=== PATIENT | female | born 1950 | race Native Hawaiian/Other Pacific Islander ===

== ENCOUNTER 2025-04-03 08:26 | Inpatient (IN) | payer MEDICARE, BC, SELFPAY ==
[2025-04-03] VITALS (37 sets, daily range): BP systolic 122–162; BP diastolic 62–87; PULSE 75–102; RESP 8–33; TEMP 36.2–37.2; O2SAT 93–139; BMI 25.4; BMI 25.0
--- NOTE | 2025-04-03 | PATH_ITS ---
[facility] Accession Number: [id number] No. of containers..01 Tissue . 01 Material submitted: . jejunum - JEJUNUM, SEGMENTAL RESECTION . 01 Diagnosis: JEJUNUM, SEGMENTAL RESECTION: Segment of small bowel, with patchy erosion and focal ulceration. No dysplasia or malignancy identified. . Specimen Comments: The features are compatible with the clinical history of anastomotic ulceration. [facility] 04/07/20251640 Local . 01 Electronically signed: . Candelario Delgado MD, Pathologist NPI- [id number] . 01 Gross description: . Received in formalin, labeled with two identifiers and jejunum, is a small portion of bowel measuring 3.5 cm in length by 3.7 cm in diameter with visible mucosa and a blind-ended pouch. The margin is inked blue. The mucosa is pascual and velvety with edematous folds and focal erythema. The villeda measure up to 0.6 cm thick. No perforations are identified. Pressurizer sections are submitted in cassettes A1-A2. ([id number]) /Con[facility]ion 04/07/20251640 Local . 01 Pathologist provided ICD-10: K28.5 . 01 CPT . 049054 Specimen Comment: A courtesy copy of this report has been sent to [facility] Pathology Performed at: [address] [facility], [place], [place] [id number] MD Candelario Delgado MD Phone: [phone]
--- NOTE | 2025-04-03 08:52 | ED.ABDPAIN ---
HPI - Abdominal Pain General Chief Complaint: Abdominal Pain Stated Complaint: Coffee ground Vomit and stool . 5 days Time Seen by Provider: 04/03/25 08:35 Source: patient Mode of arrival: Ambulatory History of Present Illness HPI narrative: 74-year-old female history of hypertension dyslipidemia and known history of ulcers previously on pantoprazole that started back in September taken off of it most recently in January presents with coffee-ground emesis this past 1 day and starting on Sunday had dark diarrhea and was fine Sunday and and then this morning again started to have dark diarrheal stool. She is lightheaded weak with no energy at this time. She denies taking any NSAIDs and is not on any aspirin or any other anticoagulants. Other than what is stated 14 point review of system is negative. Related Data Allergies Allergy/AdvReac Type Severity Reaction Status Date / Time No Known Drug Allergies Allergy Verified 04/03/25 08:43 Review of Systems Review of Systems ROS Unobtainable: All systems reviewed & are unremarkable except as noted in HPI and below Patient History Social History Smoking Status: Never smoker Smoking Status: Never smoker Exam Narrative Exam Narrative: GENERAL: [74] year old patient appears stated age. Well-developed patient, in mild distress. HEAD: Atraumatic. Normocephalic. EYES: Pupils equal round and reactive. Extraocular motions intact. No scleral icterus. No injection or drainage. ENT: Nose without bleeding, purulent drainage. Throat without erythema, tonsillar hypertrophy or exudate. Airway patent. NECK: Trachea midline. Non tender CARDIOVASCULAR: Regular rate and rhythm without murmurs, gallops, or rubs. RESPIRATORY: Clear to auscultation. Breath sounds equal bilaterally. No wheezes, rales, or rhonchi. GASTROINTESTINAL: Abdomen soft, non-tender, LLQ ttp. EXTREMITIES: No edema or joint tenderness. BACK: Nontender without deformity or crepitance. No flank tenderness. NEURO: AOx3. SKIN: No rash or erythema of visible areas Initial Vital Signs Initial Vital Signs: Vital Signs Temperature 98.1 F 04/03/25 08:41 Pulse Rate 102 H 04/03/25 08:41 Respiratory Rate 19 04/03/25 08:41 Blood Pressure 125/75 04/03/25 08:41 Pulse Oximetry 97 04/03/25 08:41 Oxygen Delivery Method Room Air 04/03/25 08:41 Course Orders Ordered: ED Orders 04/03/25 08:48 Complete Blood Count AUTO DIFF Stat Comprehensive Metabolic Panel Stat Lipase Stat 04/03/25 08:58 CT angio Abd/Pel GI Bleed Stat Lactated Ringer's (Lactated Ringers) 1,000 mls @ 1,000 mls/hr IV BOLUS ONE Stop: 04/03/25 09:57 Ondansetron HCl (Ondansetron 4 Mg/2 Ml Inj) 4 mg IV NOW PRN PRN Reason: Nausea And Vomiting Ondansetron HCl (Ondansetron 4 Mg Odt) 4 mg PO NOW PRN PRN Reason: Nausea And Vomiting Vital Signs Vital signs: Vital Signs - 8 hr 04/03/25 08:41 Temperature 98.1 F Pulse Rate 102 H Respiratory Rate 19 Blood Pressure 125/75 Pulse Oximetry 97 Oxygen Delivery Method Room Air MDM - Abdominal Pain Lab Data 04/03/25 08:48 04/03/25 08:48 Labs: Lab Results 04/03/25 Range/Units 08:48 WBC 13.3 H (4.5-11.0) X10^3/uL RBC 4.00 (4.0-5.2) X10^6/uL Hgb 11.2 L (12.0-16.0) g/dL Hct 33.2 L (36-46) % MCV 83.0 (80-100) fL MCH 28.1 (26-34) PG MCHC 33.8 (30-36) % RDW 15.3 H (11.6-14.8) % Plt Count 420 H (150-400) X10^3/uL Neut % (Auto) 77.9 H (50-75) % Lymph % (Auto) 14.2 L (25-40) % Wolfe % (Auto) 7.3 (3-14) % Eos % (Auto) 0.2 L (2-4) % Baso % (Auto) 0.4 (0-2) % Neut # (Auto) 60661 H (4755-2813) /uL Lymph # (Auto) 1900 (6126-1664) /uL Wolfe # (Auto) 1000 H (0-900) /uL Eos # (Auto) 0 (0-450) /uL Baso # (Auto) 100 (0-100) /uL Sodium 132 L (137-145) mmol/L Potassium 3.6 (3.4-5.1) mmol/L Chloride 93 L (98-107) mmol/L Carbon Dioxide 17 L (22-32) mmol/L BUN 20 H (7-17) mg/dL Creatinine 0.80 (0.52-1.04) mg/dL Estimated GFR > 60 (>60) mL/min BUN/Creatinine Ratio 25.0 H (6-22) Glucose 103 H (70-99) mg/dL Calcium 9.9 (8.4-10.2) mg/dL Total Bilirubin 1.3 (0.2-1.3) mg/dL AST 25 (14-36) IU/L ALT 13 (<35) IU/L Alkaline Phosphatase 65 (38-126) U/L Total Protein 8.2 (6.3-8.2) g/dL Albumin 4.5 (3.5-5.0) g/dL Globulin 3.7 (1.7-4.1) g/dL Albumin/Globulin Ratio 1.2 (1.0-2.8) Lipase 105 (23-300) U/L Imaging Data CT scan - abdomen/pelvis: Radiologist's Impression: : 1950 Acct:[id number] Age/Sex: 74 / F Date of Service: 04/03/25 Loc: ED Accession Number: [id number] Procedure: CT angio Abd/Pel GI Bleed Ordering Provider: Momo Louise D.O. PROCEDURE: CT ANGIO ABD/PEL GI BLEED INDICATIONS: GI BLEED TECHNIQUE: After the administration of intravenous contrast, 2.5 mm sections acquired from the diaphragm to the iliac crests. 10 mm maximum intensity projection (MIP) coronal and sagittal reformats were then performed. For radiation dose reduction, the following was used: automated exposure control. COMPARISON: None. FINDINGS: Image quality: Diagnostic. Abdominal aorta: No aortic aneurysm or evidence of acute aortic syndrome. Mesenteric arteries: Patent without hemodynamically significant stenosis. Renal arteries: Patent without hemodynamically significant stenosis. Lower chest: Unremarkable. ABDOMEN: Liver: No solid mass. Gallbladder: Cholelithiasis without wall thickening or adjacent fat stranding to suggest acute cholecystitis. Biliary ducts: No biliary dilation. Pancreas: No ductal dilation. Spleen: Size is within normal limits. Adrenal Glands: No adrenal nodules. Kidneys and Ureters: No hydronephrosis. No solid mass. No complex renal cystic lesion which requires follow up. Stomach and Bowel: Prior gastric resection, with a gastrojejunostomy. There is a perforated ulcer associated with the proximal jejunum, just distal to the anastomosis (series 12, image 25). Significant inflammatory changes of the proximal jejunum. Peritoneum: Small volume free air. Small volume free fluid in the pelvis. Ventral Wall: No hernia. Abdominal Nodes: No retroperitoneal or mesenteric adenopathy by size criteria. Vessels: Aorta, as above. Normal IVC. PELVIS: Pelvic Organs: Unremarkable. Bladder: Unremarkable. Pelvic Nodes: No enlarged lymph nodes. Miscellaneous: No inguinal hernias are seen. Bones: No aggressive osseous abnormality. IMPRESSION: Gastrojejunostomy, with perforated ulcer of the proximal jejunum, just distal to the anastomosis. Small volume free air. Small volume free fluid. No drainable abscess. Findings discussed with Dr. Louise at 9:38 a.m. On 04/03/2025. MDM Narrative Medical decision making narrative: Vital signs, nurse triage note, medication list, previous ER visits, and all imaging studies reviewed. Ct scan Gastrojejunostomy, with perforated ulcer of the proximal jejunum, just distal to the anastomosis.Small volume free air. Small volume free fluid. No drainable abscess. Discharge Plan Departure Patient Disposition: Admitted As Inpatient Clinical Impression: Perforated ulcer of intestine
--- NOTE | 2025-04-03 08:58 | DI.CT.S_ITS ---
PROCEDURE: CT ANGIO ABD/PEL GI BLEED INDICATIONS: GI BLEED TECHNIQUE: After the administration of intravenous contrast, 2.5 mm sections acquired from the diaphragm to the iliac crests. 10 mm maximum intensity projection (MIP) coronal and sagittal reformats were then performed. For radiation dose reduction, the following was used: automated exposure control. COMPARISON: None. FINDINGS: Image quality: Diagnostic. Abdominal aorta: No aortic aneurysm or evidence of acute aortic syndrome. Mesenteric arteries: Patent without hemodynamically significant stenosis. Renal arteries: Patent without hemodynamically significant stenosis. Lower chest: Unremarkable. ABDOMEN: Liver: No solid mass. Gallbladder: Cholelithiasis without wall thickening or adjacent fat stranding to suggest acute cholecystitis. Biliary ducts: No biliary dilation. Pancreas: No ductal dilation. Spleen: Size is within normal limits. Adrenal Glands: No adrenal nodules. Kidneys and Ureters: No hydronephrosis. No solid mass. No complex renal cystic lesion which requires follow up. Stomach and Bowel: Prior gastric resection, with a gastrojejunostomy. There is a perforated ulcer associated with the proximal jejunum, just distal to the anastomosis (series 12, image 25). Significant inflammatory changes of the proximal jejunum. Peritoneum: Small volume free air. Small volume free fluid in the pelvis. Ventral Wall: No hernia. Abdominal Nodes: No retroperitoneal or mesenteric adenopathy by size criteria. Vessels: Aorta, as above. Normal IVC. PELVIS: Pelvic Organs: Unremarkable. Bladder: Unremarkable. Pelvic Nodes: No enlarged lymph nodes. Miscellaneous: No inguinal hernias are seen. Bones: No aggressive osseous abnormality. IMPRESSION: Gastrojejunostomy, with perforated ulcer of the proximal jejunum, just distal to the anastomosis. Small volume free air. Small volume free fluid. No drainable abscess. Findings discussed with Dr. Louise at 9:38 a.m. On 04/03/2025. Dictated by: Jose Corral M.D. on 04/03/2025 at 9:33 Approved by: Jose Corral M.D. on 04/03/2025 at 9:41
[2025-04-03 09:07] LABS: Add Manual Diff / Slide Review NO; Hematocrit 33.2 % (36-46); Hemoglobin 11.2 g/dL (12.0-16.0); Lymphocytes Absolute Auto 1900 /uL (1100-4500); Mean Corpuscular HGB Conc 33.8 % (30-36); Mean Corpuscular Hemoglobin 28.1 PG (26-34); Mean Corpuscular Volume 83.0 fL (80-100); Platelet Count 420 X10^3/uL (150-400)
[2025-04-03 09:12] LABS: Alanine Aminotransferase 13 IU/L (<35); Albumin 4.5 g/dL (3.5-5.0); Albumin Globulin Ratio 1.2 (1.0-2.8); Alkaline Phosphatase 65 U/L (38-126); Blood Urea Nitrogen 20 mg/dL (7-17); Calcium 9.9 mg/dL (8.4-10.2); Carbon Dioxide 17 mmol/L (22-32); Chloride 93 mmol/L (98-107); Estimated Glomerular Filt Rate > 60 mL/min (>60); Globulin 3.7 g/dL (1.7-4.1); Glucose 103 mg/dL (70-99); HEMOLYSIS < 15 (0-50); Lipase 105 U/L (23-300); Potassium 3.6 mmol/L (3.4-5.1); Sodium 132 mmol/L (137-145); Total Protein 8.2 g/dL (6.3-8.2)
[2025-04-03] MEDS: LACTATED RINGERS 1,000 ML 1000 ML IV (09:58)
--- NOTE | 2025-04-03 10:36 | P.HP_ITS ---
History of Present Illness History of Present Illness Date Patient Seen: 04/03/25 Time Patient Seen: 10:30 Date of Onset of Symptoms: 03/30/25 Chief complaint: Coffee ground Vomit and stool . 5 days Narrative: Patient presents to the emergency room with nausea vomiting hematemesis going on 5 days with black melanotic stools for several weeks. Patient states her pain is only 2 on a scale of 0-10 she has had a history of multiple peptic ulcers history of recent EGD in October of 2024 which showed peptic ulcer disease also had a perforated pre-pyloric ulcer in 1999 22 underwent a partial gastrectomy with gastrojejunostomy. Patient underwent a workup in the emergency room showed WBC of 13.3 hemoglobin is 11.2 hematocrit is 33.2 platelets are 420,000 sodium is 132 potassium 3.6 chloride 93 bicarb is 17 BUN of 20 creatinine 0.8 random blood sugar is 103 total bilirubin is 1.3 AST is 25 ALT is 13 alkaline phosphatase 68 lipase is [address] scan showing free air in the epigastric area with the gastrojejunostomy with an area of inflammation and small air bubble near this absent antrum gallstone noted within the gallbladder but noninflamed absent uterus. Patient states that denies any other problems denies any anticoagulation. I was asked see the patient for surgical evaluation. Allergies: NKDA Medications: See patient's med list patient is taking metformin beta-heather other meds Past medical history: 5 para 5 ab 0, hypertension, [id number] diabetes mellitus, atherosclerotic vascular disease coronary artery disease denies any heart attacks, history of peptic ulcer disease with previous gastric resection 2021 with EGD october of this year showing peptic ulcer disease again. Patient denies any other heart lungs digestive musculoskeletal neurological seizure disorder psychiatric problems risk for infectious diseases HIV or AIDS. Past surgical history: Tonsils and adenoids, right and left cataracts, C- section x5, SKYE with BSO, partial gastrectomy in 2021 with gastrojejunostomy, EGD October of 2024 showing peptic ulcer disease, no history of screening colonoscopy Social history: Patient denies any tobacco alcohol or recreational drug usage Vitals: Temperature is 98.1? pulse is 102 respirations 19 BP is 125/75 patient weighs 135 lb patient's SaO2 is 97% on room air. Head is normocephalic eyes PERRLA EOMI is intact nares are clear septum midline oropharyngeal cavity is in moderate repair patient appeared please have the nares no signs of dental bridges or plates oropharyngeal cavity is dry heart regular rate and rhythm with slight tachycardia. Lungs are diminished in the bases poor inspiratory and expiratory effort poor chest wall motion noted. Abdomen is soft with hypoactive bowel sounds patient has some epigastric peritoneal signs with rebound. Musculoskeletal moderate muscle tone and strength equal bilaterally no gross deficit elicited. Impression: Nausea vomiting with hematemesis x5 days black melanotic stools times several weeks CT scan showing pneumoperitoneum with appears to be an ulcer at the gastrojejunostomy anastomosis Previous history of peptic ulcer disease status post resection Hypertension Maryam sclerotic vascular disease coronary disease no VA Non insulin-dependent diabetes mellitus Plan: Discussed with patient and family in the room the need for exploratory laparotomy with repair of perforation most likely peptic ulcer disease. Procedure risks and complications were fully explained including risk for cardiopulmonary depression infection bleeding possible further gastric resection they understand and consent they understand the risk for complications can be anywhere from 50-60%. All questions were answered to their satisfaction we will proceed to OR this date we will place NG IV antibiotics SCDs Garcia in surgery patient will be admitted postoperatively we will have hospitalist manage medical problems. PFSH Social History Smoking Status: Never smoker Meds Home Medications and Allergies Allergies Allergy/AdvReac Type Severity Reaction Status Date / Time No Known Drug Allergies Allergy Verified 04/03/25 08:43 Exam Vital Signs (past 8 hours): - 04/03/25 08:41 Temperature 98.1 F Pulse Rate 102 H Respiratory Rate 19 Blood Pressure 125/75 Pulse Oximetry 97 Oxygen Delivery Method Room Air Oxygen Delivery Method Room Air Objective Labs 04/03/25 08:48 04/03/25 08:48 Labs: Laboratory Results - last 24 hr 04/03/25 08:48 WBC 13.3 H RBC 4.00 Hgb 11.2 L Hct 33.2 L MCV 83.0 MCH 28.1 MCHC 33.8 RDW 15.3 H Plt Count 420 H Neut % (Auto) 77.9 H Lymph % (Auto) 14.2 L [place] % (Auto) 7.3 Eos % (Auto) 0.2 L Baso % (Auto) 0.4 Neut # (Auto) 18938 H Lymph # (Auto) 1900 [place] # (Auto) 1000 H Eos # (Auto) 0 Baso # (Auto) 100 Sodium 132 L Potassium 3.6 Chloride 93 L Carbon Dioxide 17 L BUN 20 H Creatinine 0.80 Estimated GFR > 60 BUN/Creatinine Ratio 25.0 H Glucose 103 H Calcium 9.9 Total Bilirubin 1.3 AST 25 ALT 13 Alkaline Phosphatase 65 Total Protein 8.2 Albumin 4.5 Globulin 3.7 Albumin/Globulin Ratio 1.2 Lipase 105 Assessment & Plan Time-Based Coding :: [TOTAL MINUTES] spent with patient and on the chart (including review of chart, obtaining history, exam, reviewing outside data, placing orders, documenting exam and treatment plan, and counseling patient) on [DATE]. [employer] Document charge(s): Yes
--- NOTE | 2025-04-03 10:54 | EKG_ITS ---
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
[2025-04-03] MEDS: LACTATED RINGERS 1,000 ML 42 ML IV (12:17)
--- NOTE | 2025-04-03 12:18 | SUR.HOLD ---
Bard 16 F NG tube placed in right nare without difficulty. The tubing was measured and lubricated. Patient able to swallow water during the procedure. Clear, red, brown fluid began draining out of the tube, suction applied. Tubing secured to nare and gown.
[2025-04-03] MEDS: PIPERACILLIN/TAZO 3.375 GM in SODIUM CHLORIDE 0.9% 100 ML IV (12:27)
--- NOTE | 2025-04-03 12:50 | SUR.OPER ---
Supine on padded OR bed, head on pillow, arms secured on padded arm boards at <90 degrees abduction, legs uncrossed, safety belt at thigh, tape over blanket over lower legs.
[2025-04-03] MEDS: BUPIVACAINE 0.25% W/ EPI 30 ML VIAL INJ (13:10)
--- NOTE | 2025-04-03 14:43 | PM.OP.1 ---
Operative Date/Time/Diagnoses Date of procedure: 04/03/25 Time of procedure: 02:45 Pre-op diagnosis: Nausea vomiting hematemesis with black melanotic stools CT scan showing pneumoperitoneum rule out perforated peptic ulcer disease Post-op diagnosis: same (Anterior staple line from previous gastrojejunostomy was completely open) Procedure & Clinicians Procedure: Patient was seen in consultation preoperatively in the emergency room underwent a CT scan which was showing free air in the abdomen with inflammation surrounding a gastrojejunostomy anastomosis patient had a previous antrectomy. Discussed with patient and family the findings need for emergency laparotomy procedure risks and complications were fully explained including risk for cardiopulmonary depression infection bleeding bowel injury possible anastomotic disruption sepsis with complication rate of 50-60% they understood and consented. Patient had been NPO but had a large distended stomach NG tube was to be placed in the ER was later placed in the OR prior to induction. Patient was given IV antibiotics SCDs Garcia catheter placed by bedside drainage after administration of a general inhalation endotracheal anesthetic. Patient was prepped and draped in usual sterile fashion time-out was performed patient procedure and surgeon all in the room were agreement. Epigastric incision was made a 15. Knife blade to gently dissected down with electrocautery fascia was incised in the midline elevated peritoneum was nicked fingers and reduced the abdominal cavity and the incision was large in the superior inferior fashion with electrocautery. Large amount of inflammation was noted overlying the anastomosis large amount of omentum was noted covering this area. Bookwalter self-retaining retractor was then placed and all pads were placed and used to protect the retraction of the retractors. Patient's stomach was identified the omental adhesions were taken down and the whole anterior portion of her previous gastrojejunostomy staple line was disrupted proximally a 2-1/2 inch disruption. This was all taken down all areas were visualized the back wall staple line was still intact without any problems. Redundant loop loop of small intestine was removed and submitted to pathology no bleeding was noted. Patient had the free edge of the of the Sha-en-Y limb was taken down the redundant bowel was taken down and divided and set up for a hand-sewn anastomosis as the bowel and stomach were very friable and was elected not to perform a re staple line. Patient then had the serosal edges were marked with 3-0 silk and then a running lock suture of 3-0 Vicryl was used to close the posterior mucosa the anterior mucosa was closed in a similar fashion. Patient then had interrupted [id number] sutures of 3-0 silk was used to close the serosa of the stomach and the small intestine. Patient then had anesthesia place gas into the gastric lumen with the NG and no anastomotic leak was noted all water was placed in the abdominal cavity and no air bubbles were noted. The stomach was desufflated the serosa was then further reinforced with [id number] sutures of 3-0 silk no undue tension was noted on it the Sha-en-Y limb was noted to be approximately 8-10 cm from the previous anastomosis elected not to revise this and further sutures were performed and prevent further tugging of this. Abdominal cavity was then copiously irrigated out with sterile saline and suctioned dry omental flaps were freed up and brought a cost all the suture lines. And held in place with 3-0 silk. Flat 10 mm ZEESHAN drains were placed anterior and lateral to the surgical repair. Peritoneum was then closed with a running 0 Vicryl fascia was closed with a single running 0 Prolene wound was irrigated out with sterile normal saline suctioned dry no bleeding was noted patient is in incision was then liberally injected with Marcaine 0.25% with epi the deep fatty layer was then closed with a running 0 Vicryl skin reapproximated with skin stapling device. Drains were sutured in place with 3-0 nylon and placed to bulb suctioned. Incision was cleansed with sterile saline blotted dry covered with a bulky bandages and taped in place. First and 2nd sponge instrument and needle counts were found to be correct. Patient tolerated procedure well without any complication patient was returned to recovery room in satisfactory condition. We will admit to ICU and monitor we will have a hospitalist consult for medical management. Same procedure(s) as scheduled: Yes Surgeon: Jamie Su Destaticizer Feeder: Sloan Donaldson Anesthesia Type: General Operative Notes Findings: Perforated anastomotic ulcer Closure Type: primary Prosthetic devices, grafts, tissues, transplants, or devices: Small intestine sent to lab Gram stain aerobic and anaerobic C&S were performed. Applied: drain(s) Estimated Blood Loss (mL): 25 Blood products transfused: none Complications: none Post-operative Condition: stable Disposition: ICU
[2025-04-03] MEDS: LACTATED RINGERS 1,000 ML 120 ML IV ×2 (15:49→21:41)
--- NOTE | 2025-04-03 16:03 | PM.CN ---
History of Present Illness Consult details Date Patient Seen: 04/03/25 Time Patient Seen: 16:04 Chief complaint: Coffee ground Vomit and stool . 5 days Narrative: Patient was a 74-year-old who presented with nausea, vomiting, and he would this for 5 days. She also had melena for several weeks. In the emergency department she was found to have WBC of 13.3. A CT of the abdomen revealed free air consistent with perforation. She does have a history of peptic ulcer disease and a history of perforation in the past. She was seen by General surgery and taken to the operating room where she underwent laparotomy with repair of the anterior gastric staple line from her previous gastrojejunostomy. She did well and was extubated and brought to the ICU postoperatively. Past history includes peptic ulcer disease, previous perforation, hypertension, and dyslipidemia. S: Postoperatively, she was seen in the ICU. Though she was relatively comfortable. She denies any dyspnea, or chest pain. She was some left upper quadrant tenderness. A nasogastric tube is in place. Meds Home Medications and Allergies Home Medications ?Medication ?Instructions ?Recorded ?Confirmed ?Type amlodipine 5 mg tablet 5 mg PO DAILY 04/03/25 04/03/25 History metformin 1,000 mg tablet 1,000 mg PO BID 04/03/25 04/03/25 History metoprolol succinate 25 mg 25 mg PO DAILY 04/03/25 04/03/25 History tablet,extended release 24 hr rosuvastatin 20 mg tablet 20 mg PO QAM 04/03/25 04/03/25 History Allergies Allergy/AdvReac Type Severity Reaction Status Date / Time No Known Drug Allergies Allergy Verified 04/03/25 11:33 Review of Systems Review of Systems Narrative: All else reviewed and otherwise unremarkable except as noted in the history and physical. Exam Vital Signs (past 8 hours): - 04/03/25 08:37 04/03/25 08:37 04/03/25 08:41 Temperature 98.1 F Pulse Rate 101 H 102 H Respiratory Rate 19 Blood Pressure 125/75 125/75 Pulse Oximetry 97 97 Oxygen Delivery Method Room Air Oxygen Flow Rate 04/03/25 09:00 04/03/25 09:00 04/03/25 09:15 Temperature Pulse Rate 92 H 91 H Respiratory Rate 13 8 L Blood Pressure 130/68 Pulse Oximetry 97 98 Oxygen Delivery Method Oxygen Flow Rate 04/03/25 09:15 04/03/25 09:30 04/03/25 09:30 Temperature Pulse Rate 89 Respiratory Rate 19 Blood Pressure 138/73 122/62 Pulse Oximetry 95 Oxygen Delivery Method Oxygen Flow Rate 04/03/25 10:00 04/03/25 10:00 04/03/25 10:30 Temperature Pulse Rate 95 H Respiratory Rate 24 Blood Pressure 136/70 153/75 H Pulse Oximetry 96 Oxygen Delivery Method Oxygen Flow Rate 04/03/25 10:30 04/03/25 11:00 04/03/25 11:00 Temperature Pulse Rate 86 85 Respiratory Rate 19 15 Blood Pressure 144/79 H Pulse Oximetry 97 97 Oxygen Delivery Method Oxygen Flow Rate 04/03/25 11:53 04/03/25 14:53 04/03/25 14:55 Temperature 98.0 F 97.2 F L Pulse Rate 97 H 82 78 Respiratory Rate 12 16 14 Blood Pressure 133/87 148/80 H 153/64 H Pulse Oximetry 100 100 93 Oxygen Delivery Method Room Air Room Air Nasal Cannula Oxygen Flow Rate 3 04/03/25 15:00 04/03/25 15:05 04/03/25 15:10 Temperature Pulse Rate 83 81 75 Respiratory Rate 22 23 15 Blood Pressure 143/80 H 152/82 H 161/74 H Pulse Oximetry 93 94 94 Oxygen Delivery Method Nasal Cannula Nasal Cannula Nasal Cannula Oxygen Flow Rate 3 3 3 04/03/25 15:15 04/03/25 15:20 04/03/25 15:25 Temperature 97.2 F L 97.3 F L Pulse Rate 77 76 75 Respiratory Rate 12 12 13 Blood Pressure 144/67 H 155/65 H 143/68 H Pulse Oximetry 94 94 95 Oxygen Delivery Method Nasal Cannula Nasal Cannula Nasal Cannula Oxygen Flow Rate 3 3 3 Oxygen Delivery Method Nasal Cannula Oxygen Flow Rate 3 Narrative Exam Narrative: NAD, alert and oriented, fluent speech, calm. NGT Normocephalic skull, EOMI, anicteric sclera, symmetric pupils. Oropharynx unremarkable, no droop. Neck supple, midline trachea, no adenopathy. Lungs clear, normal rate and effort. Heart regular, no murmur gallop or rub. Abdomen is soft, non distended and mild left upper quadrant tenderness. Wound is dressed. Extremities are free of edema. Skin is free of rash or lesions. Joints are not swollen or deformed. Judgment appears to be normal. Objective ECG Impression: Intervals [place] Rate: 88 P: 62 VA: 186 QRS: -27 QRSD: 78 T: 51 QT: 382 QTc: 462 Interpretive Statements Normal sinus rhythm Imaging CT scan - abdomen: Radiologist's impression: Gastrojejunostomy, with perforated ulcer of the proximal jejunum, just distal to the anastomosis. Small volume free air. Small volume free fluid. No drainable abscess. Labs 04/03/25 08:48 04/03/25 08:48 Labs: Laboratory Results - last 24 hr 04/03/25 04/03/25 08:48 11:56 WBC 13.3 H RBC 4.00 Hgb 11.2 L Hct 33.2 L MCV 83.0 MCH 28.1 MCHC 33.8 RDW 15.3 H Plt Count 420 H Neut % (Auto) 77.9 H Lymph % (Auto) 14.2 L [place] % (Auto) 7.3 Eos % (Auto) 0.2 L Baso % (Auto) 0.4 Neut # (Auto) 15906 H Lymph # (Auto) 1900 [place] # (Auto) 1000 H Eos # (Auto) 0 Baso # (Auto) 100 Sodium 132 L Potassium 3.6 Chloride 93 L Carbon Dioxide 17 L BUN 20 H Creatinine 0.80 Estimated GFR > 60 BUN/Creatinine Ratio 25.0 H Glucose 103 H POC Whole Bld Glucose 97 Calcium 9.9 Total Bilirubin 1.3 AST 25 ALT 13 Alkaline Phosphatase 65 Total Protein 8.2 Albumin 4.5 Globulin 3.7 Albumin/Globulin Ratio 1.2 Lipase 105 [facility] Medical History Diabetes Perforated ulcer of intestine Social History other: She lives with her daughter, recently moved back from a [facility]. Tobacco & Substance Use Smoking Status: Never smoker Assessment & Plan Assessment & Plan narrative: 1. Gastric perforation with pneumoperitoneum from breaking down of an anterior suture line from previous gastrojejunostomy. Present on admission and improved after laparotomy and repair. 2. Peptic ulcer disease, active. 3. Hypertension, stable. PLAN: -PPI BID. -NPO, NGT. -IV fluids -click postoperative labs including hemoglobin and renal function. Anticipate at least 2 midnights in the hospital, supports inpatient status. Time-Based Coding :: 35 min spent with patient and on the chart (including review of chart, obtaining history, exam, reviewing outside data, placing orders, documenting exam and treatment plan, and counseling patient) on 04/03.
[2025-04-03 16:30] LABS: Hematocrit 32.1 % (36-46); Hemoglobin 10.9 g/dL (12.0-16.0); Mean Corpuscular HGB Conc 34.1 % (30-36); Mean Corpuscular Hemoglobin 28.6 PG (26-34); Mean Corpuscular Volume 84.0 fL (80-100); Platelet Count 397 X10^3/uL (150-400)
[2025-04-03 19:32] LABS: Alanine Aminotransferase 12 IU/L (<35); Albumin 4.1 g/dL (3.5-5.0); Albumin Globulin Ratio 1.2 (1.0-2.8); Alkaline Phosphatase 63 U/L (38-126); Blood Urea Nitrogen 16 mg/dL (7-17); Calcium 8.8 mg/dL (8.4-10.2); Carbon Dioxide 20 mmol/L (22-32); Chloride 95 mmol/L (98-107); Estimated Glomerular Filt Rate > 60 mL/min (>60); Globulin 3.3 g/dL (1.7-4.1); Glucose 134 mg/dL (70-99); HEMOLYSIS < 15 (0-50); Potassium 3.8 mmol/L (3.4-5.1); Sodium 132 mmol/L (137-145); Total Protein 7.4 g/dL (6.3-8.2)
[2025-04-03 21:21] LABS: MRSA (Nasal) PCR NOT DETECTED (Not Detect)
[2025-04-04] VITALS (50 sets, daily range): BP systolic 129–183; BP diastolic 62–84; PULSE 78–119; RESP 10–42; TEMP 36.6–36.9; O2SAT 93–99
[2025-04-04] MEDS: LACTATED RINGERS 1,000 ML 120 ML IV ×3 (05:55→22:40)
--- NOTE | 2025-04-04 06:59 | PC.NURSE ---
Mold Finisher Summary-Patient is A/Ox4, has been awake most of the night, not in distress just can't sleep in a different place Medicated with IV Dilaudid per prn with good effect. SR, VSS, on RA by am, SpO2 >92%, LS CTA. NGT output 500ml, Lt & Rt ZEESHAN patent-see I/Os for output.
--- NOTE | 2025-04-04 08:01 | P.PN_ITS ---
Subjective Subjective Interval history: S: She was doing well. She was left lower quadrant abdomen pain. Her wound is dressed and she was a rueda in place. No flatus. She was no appetite. She was discussed directly with the surgeon [id number] this morning. Plan is to decompress the stomach and retract the nasogastric tube several cm. She was requiring pain control with IV opiates every 4 hours. Exam Vital Signs (past 8 hours): - 04/04/25 00:30 04/04/25 01:00 04/04/25 01:00 Temperature Pulse Rate 84 83 Respiratory Rate 13 12 Blood Pressure 144/69 H Pulse Oximetry 98 98 Oxygen Delivery Method Oxygen Flow Rate 04/04/25 01:30 04/04/25 02:00 04/04/25 02:00 Temperature Pulse Rate 89 81 Respiratory Rate 29 H 10 L Blood Pressure 136/63 Pulse Oximetry 98 97 Oxygen Delivery Method Oxygen Flow Rate 04/04/25 02:30 04/04/25 03:00 04/04/25 03:00 Temperature 97.8 F Pulse Rate 81 80 Respiratory Rate 12 12 Blood Pressure 136/64 Pulse Oximetry 98 99 Oxygen Delivery Method Oxygen Flow Rate 2 04/04/25 03:30 04/04/25 05:00 Temperature Pulse Rate 80 Respiratory Rate 11 L Blood Pressure Pulse Oximetry 99 Oxygen Delivery Method Room Air Oxygen Flow Rate Oxygen Delivery Method Room Air Oxygen Flow Rate 2 Narrative Exam Narrative: NAD, alert and oriented, fluent speech, calm. NGT Normocephalic skull, EOMI, anicteric sclera, symmetric pupils. Oropharynx unremarkable, no droop. Neck supple, midline trachea, no adenopathy. Lungs clear, normal rate and effort. Heart regular, no murmur gallop or rub. Abdomen is soft, non distended and mild left upper quadrant tenderness. Wound is dressed. Drain in place. Extremities are free of edema. Objective Labs 04/04/25 08:11 04/04/25 08:11 Labs: Laboratory Results - last 24 hr 04/03/25 04/03/25 04/03/25 08:48 11:56 16:21 WBC 13.3 H 14.0 H RBC 4.00 3.82 L Hgb 11.2 L 10.9 L Hct 33.2 L 32.1 L MCV 83.0 84.0 MCH 28.1 28.6 MCHC 33.8 34.1 RDW 15.3 H 15.1 H Plt Count 420 H 397 Neut % (Auto) 77.9 H Lymph % (Auto) 14.2 L [place] % (Auto) 7.3 Eos % (Auto) 0.2 L Baso % (Auto) 0.4 Neut # (Auto) 28590 H Lymph # (Auto) 1900 [place] # (Auto) 1000 H Eos # (Auto) 0 Baso # (Auto) 100 Sodium 132 L 132 L Potassium 3.6 3.8 Chloride 93 L 95 L Carbon Dioxide 17 L 20 L BUN 20 H 16 Creatinine 0.80 0.68 Estimated GFR > 60 > 60 BUN/Creatinine Ratio 25.0 H 23.5 H Glucose 103 H 134 H POC Whole Bld Glucose 97 Calcium 9.9 8.8 Total Bilirubin 1.3 1.0 AST 25 34 ALT 13 12 Alkaline Phosphatase 65 63 Total Protein 8.2 7.4 Albumin 4.5 4.1 Globulin 3.7 3.3 Albumin/Globulin Ratio 1.2 1.2 Lipase 105 Nasal Screen MRSA (PCR) 04/03/25 04/03/25 04/04/25 16:55 17:41 00:47 WBC RBC Hgb Hct MCV MCH MCHC RDW Plt Count Neut % (Auto) Lymph % (Auto) [place] % (Auto) Eos % (Auto) Baso % (Auto) Neut # (Auto) Lymph # (Auto) [place] # (Auto) Eos # (Auto) Baso # (Auto) Sodium Potassium Chloride Carbon Dioxide BUN Creatinine Estimated GFR BUN/Creatinine Ratio Glucose POC Whole Bld Glucose 140 H 117 H Calcium Total Bilirubin AST ALT Alkaline Phosphatase Total Protein Albumin Globulin Albumin/Globulin Ratio Lipase Nasal Screen MRSA (PCR) Not detected 04/04/25 06:34 WBC RBC Hgb Hct MCV MCH MCHC RDW Plt Count Neut % (Auto) Lymph % (Auto) [place] % (Auto) Eos % (Auto) Baso % (Auto) Neut # (Auto) Lymph # (Auto) [place] # (Auto) Eos # (Auto) Baso # (Auto) Sodium Potassium Chloride Carbon Dioxide BUN Creatinine Estimated GFR BUN/Creatinine Ratio Glucose POC Whole Bld Glucose 113 H Calcium Total Bilirubin AST ALT Alkaline Phosphatase Total Protein Albumin Globulin Albumin/Globulin Ratio Lipase Nasal Screen MRSA (PCR) [facility] Medical History Diabetes Perforated ulcer of intestine Social History household members: children other: She lives with her daughter, recently moved back from a [facility]. Smoking Status: Never smoker alcohol intake: never Assessment & Plan Assessment & Plan narrative: 1. Gastric perforation with pneumoperitoneum from breaking down of an anterior suture line from previous gastrojejunostomy. Present on admission and improved after laparotomy and repair. 2. Peptic ulcer disease, active. 3. Hypertension, stable. PLAN: -PPI BID. -NPO, NGT. -IV fluids -abalgesia. Anticipate at least 2-3 midnights in the hospital, supports inpatient status. Time-Based Coding :: [TOTAL MINUTES] spent with patient and on the chart (including review of chart, obtaining history, exam, reviewing outside data, placing orders, documenting exam and treatment plan, and counseling patient) on [DATE].
[2025-04-04 08:37] LABS: Add Manual Diff / Slide Review NO; Hematocrit 26.4 % (36-46); Hemoglobin 9.1 g/dL (12.0-16.0); Lymphocytes Absolute Auto 1300 /uL (1100-4500); Mean Corpuscular HGB Conc 34.7 % (30-36); Mean Corpuscular Hemoglobin 29.1 PG (26-34); Mean Corpuscular Volume 83.8 fL (80-100); Platelet Count 295 X10^3/uL (150-400)
[2025-04-04] MEDS: SODIUM CHLORIDE 0.9% FLUSH 10 ML IV ×2 (09:00→19:28)
--- NOTE | 2025-04-04 09:10 | PM.PN.IH.1 ---
Subjective Subjective Date Patient Seen: 04/04/25 Time Patient Seen: 09:10 Interval history: Patient is a 74-year-old white female postop day 1. Exploratory laparotomy with repair of anastomotic disruption of a gastrojejunostomy possible peptic ulcer disease versus trauma. Patient states she has some mild incisional discomfort is but is doing well. Patient is passing no flatus. NG output is high but patient is taking large amounts of ice chips. Patient morning laboratory shows WBC of 12.9 hemoglobin 9.1 hematocrit 26.4 platelets are 295,000 CMP is pending. Vitals: Temperature is 97.8? pulse 80 respirations 18 BP is 136/74 saturation is 99% on room air. ZEESHAN output is 230 cc clear yellow NG output was 1000 cc clear Heart regular rate and rhythm without murmurs. Lungs are clear but diminished in bases poor inspiratory and expiratory effort. Abdomen hypoactive bowel sounds with NG clamped incisional dressing is clear. Impression: Postop day 1. Exploratory laparotomy with repair of dehisced gastrojejunostomy anastomosis possible trauma versus peptic ulcer disease Ileus H&H stable no need for transfusion at this time Plan: Discussed with patient and family at bedside the findings we will go ahead and check a CT scan with oral contrast to make sure there was no anastomotic disruption. Once patient is passing flatus we will DC the NG and see about feeding patient incentive spirometry Lovenox recheck laboratory will follow patient closely no need for return to surgery at this time. All questions were answered to patient and family satisfaction. Exam Vital Signs (past 8 hours): - 04/04/25 01:30 04/04/25 02:00 04/04/25 02:00 Temperature Pulse Rate 89 81 Respiratory Rate 29 H 10 L Blood Pressure 136/63 Pulse Oximetry 98 97 Oxygen Delivery Method Oxygen Flow Rate 04/04/25 02:30 04/04/25 03:00 04/04/25 03:00 Temperature 97.8 F Pulse Rate 81 80 Respiratory Rate 12 12 Blood Pressure 136/64 Pulse Oximetry 98 99 Oxygen Delivery Method Oxygen Flow Rate 2 04/04/25 03:30 04/04/25 05:00 04/04/25 08:00 Temperature 97.8 F Pulse Rate 80 79 Respiratory Rate 11 L 14 Blood Pressure 138/67 Pulse Oximetry 99 99 Oxygen Delivery Method Room Air Oxygen Flow Rate 0 Oxygen Delivery Method Room Air Oxygen Flow Rate 0 Objective Labs 04/04/25 08:11 04/03/25 16:21 Labs: Laboratory Results - last 24 hr 04/03/25 04/03/25 04/03/25 08:48 11:56 16:21 WBC 13.3 H 14.0 H RBC 4.00 3.82 L Hgb 11.2 L 10.9 L Hct 33.2 L 32.1 L MCV 83.0 84.0 MCH 28.1 28.6 MCHC 33.8 34.1 RDW 15.3 H 15.1 H Plt Count 420 H 397 Neut % (Auto) 77.9 H Lymph % (Auto) 14.2 L [place] % (Auto) 7.3 Eos % (Auto) 0.2 L Baso % (Auto) 0.4 Neut # (Auto) 53689 H Lymph # (Auto) 1900 [place] # (Auto) 1000 H Eos # (Auto) 0 Baso # (Auto) 100 Sodium 132 L 132 L Potassium 3.6 3.8 Chloride 93 L 95 L Carbon Dioxide 17 L 20 L BUN 20 H 16 Creatinine 0.80 0.68 Estimated GFR > 60 > 60 BUN/Creatinine Ratio 25.0 H 23.5 H Glucose 103 H 134 H POC Whole Bld Glucose 97 Calcium 9.9 8.8 Total Bilirubin 1.3 1.0 AST 25 34 ALT 13 12 Alkaline Phosphatase 65 63 Total Protein 8.2 7.4 Albumin 4.5 4.1 Globulin 3.7 3.3 Albumin/Globulin Ratio 1.2 1.2 Lipase 105 Nasal Screen MRSA (PCR) 04/03/25 04/03/25 04/04/25 16:55 17:41 00:47 WBC RBC Hgb Hct MCV MCH MCHC RDW Plt Count Neut % (Auto) Lymph % (Auto) [place] % (Auto) Eos % (Auto) Baso % (Auto) Neut # (Auto) Lymph # (Auto) [place] # (Auto) Eos # (Auto) Baso # (Auto) Sodium Potassium Chloride Carbon Dioxide BUN Creatinine Estimated GFR BUN/Creatinine Ratio Glucose POC Whole Bld Glucose 140 H 117 H Calcium Total Bilirubin AST ALT Alkaline Phosphatase Total Protein Albumin Globulin Albumin/Globulin Ratio Lipase Nasal Screen MRSA (PCR) Not detected 04/04/25 04/04/25 04/04/25 06:34 07:55 08:11 WBC 12.9 H RBC 3.15 L Hgb 9.1 L Hct 26.4 L MCV 83.8 MCH 29.1 MCHC 34.7 RDW 15.0 H Plt Count 295 Neut % (Auto) 80.7 H Lymph % (Auto) 10.2 L [place] % (Auto) 8.8 Eos % (Auto) 0.0 L Baso % (Auto) 0.3 Neut # (Auto) 08331 H Lymph # (Auto) 1300 [place] # (Auto) 1100 H Eos # (Auto) 0 Baso # (Auto) 0 Sodium Potassium Chloride Carbon Dioxide BUN Creatinine Estimated GFR BUN/Creatinine Ratio Glucose POC Whole Bld Glucose 113 H 100 H Calcium Total Bilirubin AST ALT Alkaline Phosphatase Total Protein Albumin Globulin Albumin/Globulin Ratio Lipase Nasal Screen MRSA (PCR) [facility] Medical History Diabetes Perforated ulcer of intestine Social History household members: children other: She lives with her daughter, recently moved back from a [facility]. Smoking Status: Never smoker alcohol intake: never Assessment & Plan Time-Based Coding :: [TOTAL MINUTES] spent with patient and on the chart (including review of chart, obtaining history, exam, reviewing outside data, placing orders, documenting exam and treatment plan, and counseling patient) on [DATE]. PROFEE Crime Scene Evidence Technician Document charge(s): Yes
--- NOTE | 2025-04-04 09:18 | DI.CT.S_ITS ---
PROCEDURE: CT ABDOMEN PELVIS W CON INDICATIONS: Anastomosis followup TECHNIQUE: After the administration of intravenous contrast, axial sections acquired from the lung bases to the pubic symphysis. Coronal and sagittal reformats were performed. For radiation dose reduction, the following was used: automated exposure control, adjustment of mA and/or kV according to patient size. COMPARISON: [facility], CT, CT ANGIO ABD/PEL GI BLEED, 04/03/2025, 9:03. FINDINGS: Image quality: Diagnostic. Lower Chest: Tiny pleural effusions. ABDOMEN: Liver: No solid mass. A few small cysts. Gallbladder: Layering debris within the gallbladder. Trace pericholecystic fluid. Biliary ducts: No biliary dilation. Pancreas: No ductal dilation. Spleen: Size is within normal limits. Adrenal Glands: Left adrenal nodule with central fat measuring 2.3 cm. Kidneys and Ureters: No hydronephrosis. No solid mass. No complex renal cystic lesion which requires follow up. Stomach and Bowel: The patient is status post gastrojejunostomy with surgical drains overlying the anterior abdomen. Enteric tube located within the stomach with contrast filling the proximal stomach. Contrast is not challenge the gastro jejunal anastomosis. There is intense inflammatory changes in the proximal jejunum near the anastomosis site with tiny foci of air near the inflammatory changes. It is unclear if this air is enteric or postsurgical in nature. Go lack of contrast within this section of the jejunum cannot exclude enteric products. Inflammatory changes persist through several loops of jejunum. More distal jejunum demonstrates a few fluid-filled loops of bowel measuring up to 3 cm in diameter without discrete transition point. Peritoneum: There is moderate edema within the central mesentery most prominent approaching the jejunal anastomosis with several mesenteric lymph nodes. Punctate areas of free air. Ventral Wall: No significant ventral hernia. Abdominal Nodes: No retroperitoneal or mesenteric adenopathy by size criteria. Vessels: Aorta and inferior vena cava are normal in size. PELVIS: Pelvic Organs: Unremarkable. Bladder: No bladder wall thickening, accounting for underdistention. Pelvic Nodes: No enlarged lymph nodes. Miscellaneous: No inguinal hernias are seen. Bones: No aggressive osseous abnormality. IMPRESSION: 1. Persistent severe inflammatory changes at the proximal jejunum distal to the gastrojejunal anastomosis without contrast challenge of the area of concern. If contrast is not suctioned from the patient's stomach subsequent radiographs may reveal intraluminal versus extra luminal contrast passage. 2. No organized extraluminal fluid collection. 3. Moderate edema within the mesentery with reactive lymphadenopathy. 4. Small foci of free air within the peritoneum. 5. Multiple surgical drains. reactive lymphadenopathy Dictated by: Omid Wright M.D. on 04/04/2025 at 9:06 Approved by: Omid Wright M.D. on 04/04/2025 at 9:21
[2025-04-04 09:57] LABS: Blood Urea Nitrogen 10 mg/dL (7-17); Calcium 8.6 mg/dL (8.4-10.2); Carbon Dioxide 22 mmol/L (22-32); Chloride 95 mmol/L (98-107); Estimated Glomerular Filt Rate > 60 mL/min (>60); Glucose 103 mg/dL (70-99); HEMOLYSIS < 15 (0-50); Potassium 3.9 mmol/L (3.4-5.1); Sodium 130 mmol/L (137-145)
--- NOTE | 2025-04-04 10:58 | PC.NURSE ---
NG retracted [address] Su
[2025-04-04] MEDS: ONDANSETRON 4 MG/2 ML INJ IV (14:15)
--- NOTE | 2025-04-04 15:03 | CM.DANOTE ---
Patient is a 74 yo female who was admitted INPT Status on 04/03/25 for possible peptic ulcers and perf. Pt has MCR and BCBS OUT STATE REG for insurance and her PCP is not listed. EMR was reviewed. Per Surgeon, pt with hx of peptic ulcers and admitted for ex lap due to perf and getting IV Abx and NGT continued and remains NPO. CT scan today and if pt has flatus then likely can d/c NGT later today. Not yet stable for discharge. SW met bedside with pt and explained role and she confirms she lives at home in [place] with her adult Dtr/RAVEN Bowser and her twin 15 yo grandkids. Pt is very active and independent at baseline, does a lot of gardening and home care, and drives and denies any hx of HH or SNF. Pt confirms that she has had 2 other admissions to the hospital over the past 5 years for peptic ulcer issues but was able to d/c home with no needs. 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 Dtr currently local and can provide assist at d/c and transport home as well as other supportive family members. Pt preference is home at d/c and does not anticipate any further dc needs at this time. Plan: SW to follow for possible NGT removal later today pending imaging and plan of home with family support when medically stable. RAMIRO Nesbitt Discharge Planning/Care Management CM Discharge Assessment Start: 04/03/25 11:25 Freq: Status: Active Protocol: Document 04/04/25 15:01 BF (Rec: 04/04/25 15:03 [id number]) Discharge Planning Assessment Assigned Discharge RAMIRO Kolb Barrel Stave Inspector DPOA/Assigned Dtr Mague Designee Name Contact Information [phone] Advance Directives? Yes Advance Directives No on File History Provided By Patient,Medical Record Has Patient been No admitted in last 30 days? Prior Living House Arrangements Household Members family,children Comment Lives with adult Dtr and her twin 15 yo children Type of Drives own vehicle transporation used prior to admit Independent with ADL Yes 's Is patient alert and Yes oriented? Caregiver for Yes: helps with 15 yo twin grandkids Another Barriers to No Discharge Discharge Plan Home Transportation Dtr plans to provide transport at d/c Arrangement Referrals Initiated None needed Additional Comment Pending progress Whiteboard Updated Yes in Patient Room with name and ext. # of Immigration Investigator Review Status In Process Please Provide Date 04/04/25 Initial DC Assessment Was Performed Next Review Type Continued Stay Review
[2025-04-04] MEDS: METOCLOPRAMIDE 10 MG/2 ML INJ 5 MG IV ×2 (15:05→21:15)
[2025-04-05] VITALS (20 sets, daily range): BP systolic 134–172; BP diastolic 71–94; PULSE 109–121; RESP 10–29; TEMP 36.3; O2SAT 89–94
[2025-04-05] MEDS: SODIUM CHLORIDE 0.9% FLUSH 10 ML IV ×2 (09:01→20:31)
[2025-04-05] MEDS: ACETAMINOPHEN IV 1,000 MG/100 ML VIAL 400 MG IV (09:01)
[2025-04-05] MEDS: PANTOPRAZOLE 40 MG VIAL IV ×2 (09:01→20:22)
--- NOTE | 2025-04-05 09:06 | PM.PN.1 ---
Subjective Subjective Interval history: Summary: Patient is a 74-year-old who presented with nausea, vomiting, and he would this for 5 days. She also had melena for several weeks. In the emergency department she was found to have WBC of 13.3. A CT of the abdomen revealed free air consistent with perforation. She does have a history of peptic ulcer disease and a history of perforation in the past. She was seen by General surgery and taken to the operating room where she underwent laparotomy with repair of the anterior gastric staple line from her previous gastrojejunostomy. She did well and was extubated and brought to the ICU postoperatively. Past history includes peptic ulcer disease, previous perforation, hypertension, and dyslipidemia. 04/03: Underwent a repair of the anterior staple line of the stomach from her previous gastrojejunostomy site. This was found to be open. NG-tube placed, NPO, analgesia. 04/04: Comfortable, no flatus or bowel tones. NPO status, IV fluids. Repeat CT scan with contrast negative for evidence of extravasation of contrast. S: She was doing okay, she still has a fair amount of left lower quadrant pain. Drains are in place. Her NG tube was clamped by surgery this morning. Exam Vital Signs (past 8 hours): - 04/05/25 01:30 04/05/25 02:00 04/05/25 02:00 Pulse Rate 119 H 115 H Respiratory Rate 17 11 L Blood Pressure 145/74 H Pulse Oximetry Oxygen Delivery Method 04/05/25 02:30 04/05/25 03:00 04/05/25 03:00 Pulse Rate 113 H 112 H Respiratory Rate 12 11 L Blood Pressure 134/71 Pulse Oximetry Oxygen Delivery Method 04/05/25 03:30 04/05/25 04:00 04/05/25 04:00 Pulse Rate 113 H 111 H Respiratory Rate 12 12 Blood Pressure 148/83 H Pulse Oximetry Oxygen Delivery Method 04/05/25 04:30 04/05/25 05:00 04/05/25 05:00 Pulse Rate 113 H Respiratory Rate 14 Blood Pressure 159/88 H Pulse Oximetry Oxygen Delivery Method Room Air 04/05/25 05:00 04/05/25 05:30 04/05/25 06:00 Pulse Rate 116 H 110 H Respiratory Rate 12 18 Blood Pressure 168/94 H Pulse Oximetry Oxygen Delivery Method 04/05/25 06:00 04/05/25 06:30 04/05/25 07:00 Pulse Rate 113 H 112 H 109 H Respiratory Rate 16 13 16 Blood Pressure Pulse Oximetry Oxygen Delivery Method 04/05/25 07:00 04/05/25 07:30 04/05/25 08:00 Pulse Rate 111 H Respiratory Rate 13 Blood Pressure 161/89 H 172/93 H Pulse Oximetry Oxygen Delivery Method 04/05/25 08:00 04/05/25 08:30 04/05/25 09:00 Pulse Rate 115 H 114 H 111 H Respiratory Rate 16 29 H 13 Blood Pressure Pulse Oximetry 92 89 L 90 L Oxygen Delivery Method 04/05/25 09:00 Pulse Rate Respiratory Rate Blood Pressure 154/86 H Pulse Oximetry Oxygen Delivery Method Oxygen Delivery Method Room Air Oxygen Flow Rate 0 Narrative Exam Narrative: NAD, alert and oriented, fluent speech, calm. NGT Normocephalic skull, EOMI, anicteric sclera, symmetric pupils. Oropharynx unremarkable, no droop. Neck supple, midline trachea, no adenopathy. Lungs clear, normal rate and effort. Heart regular, no murmur gallop or rub. Abdomen is soft, non distended and mild left upper quadrant tenderness. Wound is dressed. Drains in place. Extremities are free of edema. Objective ECG Impression: Intervals [place] Rate: 88 P: 62 [place]: 186 QRS: -27 QRSD: 78 T: 51 QT: 382 QTc: 462 Interpretive Statements Normal sinus rhythm Imaging Multiple studies:: Radiologist's impression: Abdomen pelvis CT April 04: 1. Persistent severe inflammatory changes at the proximal jejunum distal to the gastrojejunal anastomosis without contrast challenge of the area of concern. If contrast is not suctioned from the patient's stomach subsequent radiographs may reveal intraluminal versus extra luminal contrast passage. 2. No organized extraluminal fluid collection. 3. Moderate edema within the mesentery with reactive lymphadenopathy. 4. Small foci of free air within the peritoneum. 5. Multiple surgical drains. reactive lymphadenopathy Abdomen pelvis CT April 03: Gastrojejunostomy, with perforated ulcer of the proximal jejunum, just distal to the anastomosis. Small volume free air. Small volume free fluid. No drainable abscess. Labs 04/05/25 09:40 04/05/25 09:40 Labs: Laboratory Results - last 24 hr 04/04/25 04/04/25 04/04/25 08:11 11:36 18:37 Sodium 130 L Potassium 3.9 Chloride 95 L Carbon Dioxide 22 BUN 10 Creatinine 0.64 Estimated GFR > 60 BUN/Creatinine Ratio 15.6 Glucose 103 H POC Whole Bld Glucose 98 92 Calcium 8.6 04/04/25 04/05/25 23:23 06:09 Sodium Potassium Chloride Carbon Dioxide BUN Creatinine Estimated GFR BUN/Creatinine Ratio Glucose POC Whole Bld Glucose 145 H 136 H Calcium PFSH Medical History Diabetes Perforated ulcer of intestine Social History household members: family and children other: She lives with her daughter, recently moved back from a [facility]. Smoking Status: Never smoker alcohol intake: never Assessment & Plan Assessment & Plan narrative: 1. Gastric perforation with pneumoperitoneum from breaking down of an anterior suture line from previous gastrojejunostomy. Present on admission and improved after laparotomy and repair. 2. Peptic ulcer disease, active. 3. Hypertension, stable. PLAN: -PPI BID. Pantoprazole. -NPO, NGT. Tube is clamped and might be discontinued later today. -IV fluids -added Tylenol IV Q6H scheduled. PURNIMA: 04/06-12 pending advance of diet instability of pain. Case and plans discussed directly with the surgeon, Dr. Su. She is receiving IV opiates, dangerous medications. Time-Based Coding :: [TOTAL MINUTES] spent with patient and on the chart (including review of chart, obtaining history, exam, reviewing outside data, placing orders, documenting exam and treatment plan, and counseling patient) on [DATE].
[2025-04-05] MEDS: METOCLOPRAMIDE 10 MG/2 ML INJ 5 MG IV ×2 (09:15→17:46)
--- NOTE | 2025-04-05 09:21 | PC.NURSE ---
Per Dr Su - Clamp NG for 3 hours, check residual, if less than 150mL then okay to DC NG tube.
--- NOTE | 2025-04-05 09:43 | PM.PN.IH.1 ---
Subjective Subjective Date Patient Seen: 04/05/25 Time Patient Seen: 09:30 Interval history: Patient is a 74-year-old white female postoperative day 2. Exploratory laparotomy with disruption of gastrojejunostomy anastomosis with peritonitis. Patient has NG output is down she states she is not passing flatus is slow to progress. Incisional discomfort is decreased. Patient's morning laboratory are pending. Vitals: Temperature is 98.5? pulse 111 respirations 13 BP is 154/86. ZEESHAN output is 210 cc clear NG output is 25 cc Heart regular rate and rhythm without murmurs lungs are clear but diminished in the bases. Patient's incisional dressing is clear and dry no sign infection or inflammation. NG tube was clamped good active bowel sounds were noted incisional discomfort but no peritoneal signs. Impression: Postoperative day 2. Exploratory laparotomy with repair of perforated gastrojejunostomy anastomosis with peritonitis Ileus resolving Morning laboratory pending Plan: Discussed with patient the findings we will go ahead and clamp the NG x3 hours residuals were less than 150 cc we will DC the NG. When NG out we will start patient on clear liquids we will DC Garcia have Physical therapy work with the patient for getting out of bed sitting in chair at bedside. We will recheck laboratory draw today and recheck tomorrow. We will have the patient work on the incentive spirometry continue with current medical treatment including maximal antiulcer therapy Lovenox. All questions were answered to patient's satisfaction no need for return to surgery at this time. Exam Vital Signs (past 8 hours): - 04/05/25 02:00 04/05/25 02:00 04/05/25 02:30 Pulse Rate 115 H 113 H Respiratory Rate 11 L 12 Blood Pressure 145/74 H Pulse Oximetry Oxygen Delivery Method 04/05/25 03:00 04/05/25 03:00 04/05/25 03:30 Pulse Rate 112 H 113 H Respiratory Rate 11 L 12 Blood Pressure 134/71 Pulse Oximetry Oxygen Delivery Method 04/05/25 04:00 04/05/25 04:00 04/05/25 04:30 Pulse Rate 111 H 113 H Respiratory Rate 12 14 Blood Pressure 148/83 H Pulse Oximetry Oxygen Delivery Method 04/05/25 05:00 04/05/25 05:00 04/05/25 05:00 Pulse Rate 116 H Respiratory Rate 12 Blood Pressure 159/88 H Pulse Oximetry Oxygen Delivery Method Room Air 04/05/25 05:30 04/05/25 06:00 04/05/25 06:00 Pulse Rate 110 H 113 H Respiratory Rate 18 16 Blood Pressure 168/94 H Pulse Oximetry Oxygen Delivery Method 04/05/25 06:30 04/05/25 07:00 04/05/25 07:00 Pulse Rate 112 H 109 H Respiratory Rate 13 16 Blood Pressure 161/89 H Pulse Oximetry Oxygen Delivery Method 04/05/25 07:30 04/05/25 08:00 04/05/25 08:00 Pulse Rate 111 H 115 H Respiratory Rate 13 16 Blood Pressure 172/93 H Pulse Oximetry 92 Oxygen Delivery Method 04/05/25 08:30 04/05/25 09:00 04/05/25 09:00 Pulse Rate 114 H 111 H Respiratory Rate 29 H 13 Blood Pressure 154/86 H Pulse Oximetry 89 L 90 L Oxygen Delivery Method Oxygen Delivery Method Room Air Oxygen Flow Rate 0 Objective Labs 04/04/25 08:11 04/04/25 08:11 Labs: Laboratory Results - last 24 hr 04/04/25 04/04/25 04/04/25 08:11 11:36 18:37 Sodium 130 L Potassium 3.9 Chloride 95 L Carbon Dioxide 22 BUN 10 Creatinine 0.64 Estimated GFR > 60 BUN/Creatinine Ratio 15.6 Glucose 103 H POC Whole Bld Glucose 98 92 Calcium 8.6 04/04/25 04/05/25 23:23 06:09 Sodium Potassium Chloride Carbon Dioxide BUN Creatinine Estimated GFR BUN/Creatinine Ratio Glucose POC Whole Bld Glucose 145 H 136 H Calcium PFSH Medical History Diabetes Perforated ulcer of intestine Social History household members: family and children other: She lives with her daughter, recently moved back from a [facility]. Smoking Status: Never smoker alcohol intake: never Assessment & Plan Time-Based Coding :: [TOTAL MINUTES] spent with patient and on the chart (including review of chart, obtaining history, exam, reviewing outside data, placing orders, documenting exam and treatment plan, and counseling patient) on [DATE]. PROFEE Powerhouse Operator Document charge(s): Yes
[2025-04-05 09:49] LABS: Add Manual Diff / Slide Review NO; Hematocrit 30.8 % (36-46); Hemoglobin 10.6 g/dL (12.0-16.0); Lymphocytes Absolute Auto 1200 /uL (1100-4500); Mean Corpuscular HGB Conc 34.3 % (30-36); Mean Corpuscular Hemoglobin 28.6 PG (26-34); Mean Corpuscular Volume 83.3 fL (80-100); Platelet Count 447 X10^3/uL (150-400)
[2025-04-05 10:08] LABS: Alanine Aminotransferase 10 IU/L (<35); Albumin 3.5 g/dL (3.5-5.0); Albumin Globulin Ratio 1.1 (1.0-2.8); Alkaline Phosphatase 56 U/L (38-126); Blood Urea Nitrogen 10 mg/dL (7-17); Calcium 8.6 mg/dL (8.4-10.2); Carbon Dioxide 25 mmol/L (22-32); Chloride 90 mmol/L (98-107); Estimated Glomerular Filt Rate > 60 mL/min (>60); Globulin 3.2 g/dL (1.7-4.1); Glucose 149 mg/dL (70-99); HEMOLYSIS < 15 (0-50); Potassium 3.8 mmol/L (3.4-5.1); Sodium 128 mmol/L (137-145); Total Protein 6.7 g/dL (6.3-8.2)
--- NOTE | 2025-04-05 11:02 | PT-IP ANOTE ---
PT consult received. PT reviews chart and clears with nsg. PT brings abdominal precaution handout to room and speaks with pt and daughter. Pt currently declining PT d/t too much pain and daughter also communicating this concern. Encouraged pt and daughter to ask nsg to assist up to chair if she feels up to it later. Will con't efforts for skilled PT assessment next date. PT also speaks with ordering provider about this.
[2025-04-05] MEDS: PIPERACILLIN/TAZO 4.5 GM in SODIUM CHLORIDE 0.9% 100 ML IV (11:23)
[2025-04-05] MEDS: ENOXAPARIN 40 MG/0.4 ML SYRINGE SUBCUT (11:23)
[2025-04-05] MEDS: SUCRALFATE 1 GM/10 ML ORAL SUSP PO ×3 (11:24→20:22)
[2025-04-05] MEDS: ONDANSETRON 4 MG/2 ML INJ IV (12:34)
--- NOTE | 2025-04-05 14:36 | CM.DPC ---
DCP Cont: Per Surgeon, pt with less output through NGT and having some flatus and will plan to clamp NGT today and to begin trialing liquids and ambulation. PT ordered but pt and Dtr declined due to pain today. RAMIRO Nesbitt
--- NOTE | 2025-04-05 15:34 | PC.NURSE ---
Patient declined PT services and declining all offers to ambulate out of bed with nursing assistance. Educated patient and daughter on importance of ambulation after surgery.
[2025-04-05] MEDS: PIPERACILLIN/TAZO 3.375 GM in SODIUM CHLORIDE 0.9% 100 ML IV (18:49)
[2025-04-05] MEDS: HYDROCODONE/ACET 5/325 TABLET 1 TAB PO (20:31)
[2025-04-06] VITALS: BP 149/80; PULSE 115; RESP 18; TEMP 37.1; O2SAT 91
[2025-04-06] MEDS: PIPERACILLIN/TAZO 3.375 GM in SODIUM CHLORIDE 0.9% 100 ML IV ×3 (03:21→18:04)
[2025-04-06 04:50] VITALS: BP 140/78; PULSE 118; RESP 17; TEMP 36.4; O2SAT 97
[2025-04-06] MEDS: HYDROCODONE/ACET 5/325 TABLET 1 TAB PO ×3 (04:51→17:45)
[2025-04-06 06:40] LABS: Hematocrit 25.0 % (36-46); Hemoglobin 8.7 g/dL (12.0-16.0); Mean Corpuscular HGB Conc 34.8 % (30-36); Mean Corpuscular Hemoglobin 28.9 PG (26-34); Mean Corpuscular Volume 82.9 fL (80-100); Platelet Count 441 X10^3/uL (150-400)
[2025-04-06 07:06] LABS: Alanine Aminotransferase 10 IU/L (<35); Albumin 2.9 g/dL (3.5-5.0); Albumin Globulin Ratio 1.0 (1.0-2.8); Alkaline Phosphatase 48 U/L (38-126); Blood Urea Nitrogen 21 mg/dL (7-17); Calcium 8.6 mg/dL (8.4-10.2); Carbon Dioxide 25 mmol/L (22-32); Chloride 94 mmol/L (98-107); Estimated Glomerular Filt Rate > 60 mL/min (>60); Globulin 3.0 g/dL (1.7-4.1); Glucose 128 mg/dL (70-99); HEMOLYSIS < 15 (0-50); Potassium 3.6 mmol/L (3.4-5.1); Sodium 128 mmol/L (137-145); Total Protein 5.9 g/dL (6.3-8.2)
[2025-04-06] MEDS: SUCRALFATE 1 GM/10 ML ORAL SUSP PO ×4 (08:00→21:12)
[2025-04-06] MEDS: PANTOPRAZOLE 40 MG VIAL IV ×2 (09:14→21:12)
[2025-04-06] MEDS: ENOXAPARIN 40 MG/0.4 ML SYRINGE SUBCUT (09:14)
[2025-04-06] MEDS: SODIUM CHLORIDE 0.9% FLUSH 10 ML IV ×2 (09:15→21:12)
[2025-04-06 09:16] VITALS: BP 151/70; PULSE 105; RESP 23; O2SAT 96
--- NOTE | 2025-04-06 11:09 | PC.NURSE ---
Patient is awake and pleasant to work with. She has a dressing to her ml that is cdi with two sravan drains with no drainage at this time. Garcia present with yellow urine in bag. BT are hypoactive and patient has not passed gas thus far. PT is working with patient now. Encouraging her to get up more.
--- NOTE | 2025-04-06 12:00 | PT.IIE ---
Current Diagnoses Chronic or unspecified peptic ulcer, site unspecified, with hemorrhage (04/03/25) Surgery Performed Operation Date: 04/03/25 12:15 Actual Procedures p REPAIR OF PERFORATED ANASTOMOTIC ULCER; RESECTION OF JEJUNUM, HANDSEW ANASTAMOSIS(Not Applicable) - Jamie Su DO Medical History (Last Reviewed 04/03/25 @ 16:05 by Weslye Sykes MD) Diabetes Perforated ulcer of intestine Physical Therapy Inpatient Evaluation/Re-Eval M1 PT/OT-IP Prior Functional Status Start: 04/05/25 10:21 Freq: NEEDED Status: Active Protocol: Document 04/06/25 11:29 MB (Rec: 04/06/25 11:59 MB Desktop) Medical Review Prior Functional Status Medical History Yes Reviewed Communication Unsure baseline diet Mobility and Gait I, injured her previous abdominal surgeries from cutting out blackberry bushes per pt Activities of Daily I Living and IADL's Social History Household Members family,children Living Arrangements House Number of Stairs To No steps to enter, multiple floors and pt lives on main Enter/Railing? living level and does not have to do steps Home Environment Standard Height Toilet,Tub/Shower Home Equipment Four Wheel Walker,Hand Held Shower Employment Status Retired M2 PT-IP Current Condition Start: 04/05/25 10:21 Freq: NEEDED Status: Active Protocol: Document 04/06/25 11:29 MB (Rec: 04/06/25 11:59 MB Desktop) Physical Therapy Current Condition Current Condition Evaluation Date 04/06/25 Treatment Diagnosis Perforated anastomotic ulcer s/p surgery M3 PT-IP Subjective Start: 04/05/25 10:21 Freq: NEEDED Status: Active Protocol: Document 04/06/25 11:29 MB (Rec: 04/06/25 11:59 MB Desktop) Subjective Physical Therapy Visit Type Type Initial Evaluation Visit Start Time 11:29 Visit Stop Time 11:40 Number of TRANSFER ENGINEER Visits 0 Physical Therapy Visit Comments Patient Comments Pt is agreeable to PT Patient Goals Oh, we'll work it out. Don't worry. Therapy Pain Assessment Pain When Pain Assessed During Mobility Pain Present Pain Present Pain Reported Location Upper abdome Scale Used 3-4 which is 9-10 for most people M4 PT-IP Mobility and Gait Start: 04/05/25 10:21 Freq: NEEDED Status: Active Protocol: Document 04/06/25 11:29 MB (Rec: 04/06/25 11:59 MB Desktop) PT-Bed Mobility Assessment Supine to Sit Supine to Sit Standby Assistance,Head of Bed Elevated,Bedrails Scooting Scooting to Edge of Standby Assistance Bed PT-Transfer Assessment Sit to and From Stand Sit to and from Standby Assistance Stand Equipment Transfer Assistive Gait Belt,Front Wheeled Walker Device Transfers Transfer Destination Chair Transfer Technique Stepping Transfer Ability Level of Assist Contact Guard Assistance,1 Person Assistance,Use of Upper Extremities Comments Mobility Comments HOB is up very high and pt resting comfortably and PT does educate pt on benefits of log rolling when bed is flat and since she is already in mostly sitting position, she scoots legs to the left to get to EOB Gait Assessment Gait Gait Assistance Contact Guard Assist Required: Distance (Feet) 2 Assistive Devices Assistive Device Gait Belt,Front Wheeled Walker Gait Deviations General Gait Pattern Antalgic,Decreased Feet Clearance,Flexed Trunk Factors Limiting Gait Function Factors Limiting Pain,Poor Safety Awareness Gait Function PT-Balance Assessment Sitting Balance and Reactions Static Sitting Good Balance Ability Dynamic Sitting Good Balance Ability Standing Balance and Reactions Static Standing Good Balance Ability Dynamic Standing Good Balance Ability Device Used RW M5 PT-IP Objective Assessments Start: 04/05/25 10:21 Freq: NEEDED Status: Active Protocol: Document 04/06/25 11:29 MB (Rec: 04/06/25 11:59 MB Desktop) Orientation Orientation/Cognition Level of Alertness Alert Orientation Name,Birthday,Situation Language Function No Deficits Noted Ability Safety Awareness Decreased Safety Awareness Memory Description No Deficits Noted Gross Range of Motion Upper Extremity ROM Assessment Within Functional Limits Impairments Did not push today given abdominal discomfort and arm appears WFLs Lower Extremity ROM Assessment Within Functional Limits Strength Lower Extremity Strength Assessment Within Functional Limits Coordination Assessment Assessment Coordination NT Comments Sensation Assessment Sensation Gross Sensation WNL Muscle Tone Muscle Tone WNL Yes M6 PT-IP Treatment Start: 04/05/25 10:21 Freq: NEEDED Status: Active Protocol: Document 04/06/25 11:29 MB (Rec: 04/06/25 11:59 MB Desktop) Physical Therapy Treatment Education Education Provided Post-Op Packet,Safety Other Treatments Other Treatment Ed in log rolling benefits, benefits of LRAD at this Performed time to support abdomen with mobility M7 PT-IP Assessment and Plan Start: 04/05/25 10:21 Freq: NEEDED Status: Active Protocol: Document 04/06/25 11:29 MB (Rec: 04/06/25 11:59 MB Desktop) PT Summary Assessment and Plan Potential Rehabilitation Good Potential Status of Condition Evolving at Evaluation Summary Impairments Pain,Balance,Bed Mobility,Transfers,Gait,Activity Tolerance Assessment Summary Pt is a usually very active 74 y/o female who reports injuring her previous abdominal surgery sites when cutting out blackberry bushes over the past few weeks. She is s/p surgery. Pt is mostly upright today and so she scoots to EOB and PT ed pt in benefits of log rolling when she is in a flat bed. Pt moves slowly and well and c/o abdominal pain. She is not clear about d/c goal. Currently recommend Home with assistance and HHPT vs SNF. Unsure if her daughter is available to assist her at their home or not. Goals Bed Mobility Goal Independent Transfer Goal Independent,Four Wheeled Walker Gait Goal Independent,Four Wheel Walker Gait Distance 100 Days to Meet Goals 5 Frequency of Treatment Frequency Of Once a Day Treatment Treatment Plan Physical Therapy Bed Mobility Training,Transfer Training,Gait Training, Treatment Plan Therapeutic Exercise,Balance Retraining,Post Op Education,Discharge Planning,Hot or Cold Pack, Neuromuscular Re-ed,Coordination Retraining,Manual Therapy Precautions Abdominal Surgery Log Roll,Lifting Restrictions,Gait Belt above Precautions Incisional Area Recommendations To Nursing Amount of Assist 1 Person Assist Needed Discharge Recommendations PT Discharge Home with 19/03 Assist Available,Home Health,SNF Rehab Recommendations Transportation Needs Private Vehicle,Wheelchair/Cabulance at Discharge - PT assist x1
--- NOTE | 2025-04-06 12:10 | P.PN_ITS ---
Subjective Subjective Date Patient Seen: 04/06/25 Time Patient Seen: 10:30 Interval history: Patient is a 74-year-old white female postoperative day 3. Repair of perforated gastrojejunostomy anastomosis. Patient states she is feeling better passing flatus no bowel movement tolerating diet well. Wanting laboratory shows WBC of 14.3 hemoglobin is 8.7 hematocrit is 25.0 platelets are 441,000 sodium is 128 potassium 3.6 chloride 94 bicarb is 25 BUN of 21 creatinine 0 point 4 4 normal LFTs random blood sugar is 128 patient's path report is still pending Vitals: Temperature is 97.6 pulse is 105 respirations 23 BP is 151/70 SaO2 is 96% on room air ZEESHAN is 115 cc of clear. Heart regular rate and rhythm with slight tachycardia lungs are clear to auscultation no rales rhonchi or wheezes noted moderate inspiratory and expiratory effort moderate chest wall motion noted. Abdomen is soft nondistended incision is clean and dry no sign infection or inflammation ZEESHAN drainage is clear thin yellow. Impression: Postop day 3. Exploratory laparotomy with repair of perforated gastro jejunostomy without any gross ulceration noted possible traumatic Slight drop in H&H but no bleeding is noted on ZEESHAN drainage. Possible delusional Plan: We will go ahead and advance patient's diet encourage pulmonary toilet ambulation up in chair patient is on Lovenox we will go ahead and see how she tolerates diet may possible discharge in the next 24-48 hours. Hospitalist for medical management all questions were answered to patient's satisfaction. Exam Vital Signs (past 8 hours): - 04/06/25 04:50 04/06/25 09:16 Temperature 97.6 F Pulse Rate 118 H 105 H Respiratory Rate 17 23 Blood Pressure 140/78 151/70 H Pulse Oximetry 97 96 Oxygen Flow Rate 0 0 Oxygen Delivery Method Room Air Oxygen Flow Rate 0 Objective Labs 04/06/25 06:20 04/06/25 06:20 Labs: Laboratory Results - last 24 hr 04/06/25 04/06/25 06:20 07:48 WBC 14.3 H RBC 3.01 L Hgb 8.7 L Hct 25.0 L MCV 82.9 MCH 28.9 MCHC 34.8 RDW 14.9 H Plt Count 441 H Sodium 128 L Potassium 3.6 Chloride 94 L Carbon Dioxide 25 BUN 21 H Creatinine 0.64 Estimated GFR > 60 BUN/Creatinine Ratio 32.8 H Glucose 128 H POC Whole Bld Glucose 124 H Calcium 8.6 Total Bilirubin 0.4 AST 21 ALT 10 Alkaline Phosphatase 48 Total Protein 5.9 L Albumin 2.9 L Globulin 3.0 Albumin/Globulin Ratio 1.0 [facility] Medical History Diabetes Perforated ulcer of intestine Social History household members: family and children other: She lives with her daughter, recently moved back from a [facility]. Smoking Status: Never smoker alcohol intake: never Assessment & Plan Time-Based Coding :: [TOTAL MINUTES] spent with patient and on the chart (including review of chart, obtaining history, exam, reviewing outside data, placing orders, documenting exam and treatment plan, and counseling patient) on [DATE]. PROFEE Food Photographer Document charge(s): Yes
[2025-04-06 14:00] VITALS: BP 107/57; PULSE 81; RESP 26; TEMP 36.6; O2SAT 94
--- NOTE | 2025-04-06 16:05 | PM.PN.1 ---
Subjective Subjective Date Patient Seen: 04/06/25 Interval history: Chief complaint: Abdominal pain secondary to perforation at previous anastomosis 3 years ago History of present illness: 04/03: 74-year-old who presented with nausea, vomiting, and he would this for 5 days. She also had melena for several weeks. In the emergency department she was found to have WBC of 13.3. A CT of the abdomen revealed free air consistent with perforation. She does have a history of peptic ulcer disease and a history of perforation in the past. She was seen by General surgery and taken to the operating room where she underwent laparotomy with repair of the anterior gastric staple line from her previous gastrojejunostomy. She did well and was extubated and brought to the ICU postoperatively. Past history includes peptic ulcer disease, previous perforation, hypertension, and dyslipidemia. S: Postoperatively, she was seen in the ICU. Though she was relatively comfortable. She denies any dyspnea, or chest pain. She was some left upper quadrant tenderness. A nasogastric tube is in place. 04/04-04/05: Continued to improve nasogastric tube removed 04/06: No complaints at this time no nausea or vomiting she is alert and cogent bowel sounds are present she is passing gas tolerating diet For objective laboratory data see the bottom of the page Assessment and plan: Gastric perforation from breaking down of anterior suture line from previous gastrojejunostomy improved Management per surgery service DVT prophylaxis per surgery service Code status: Full code blue 25 minutes were involved in the management of this patient including [id number] evaluation physical examination consultation with surgery service Exam Vital Signs (past 8 hours): - 04/06/25 09:16 Pulse Rate 105 H Respiratory Rate 23 Blood Pressure 151/70 H Pulse Oximetry 96 Oxygen Flow Rate 0 Oxygen Delivery Method Room Air Oxygen Flow Rate 0 Objective Labs 04/06/25 06:20 04/06/25 06:20 Labs: Laboratory Results - last 24 hr 04/06/25 04/06/25 06:20 07:48 WBC 14.3 H RBC 3.01 L Hgb 8.7 L Hct 25.0 L MCV 82.9 MCH 28.9 MCHC 34.8 RDW 14.9 H Plt Count 441 H Sodium 128 L Potassium 3.6 Chloride 94 L Carbon Dioxide 25 BUN 21 H Creatinine 0.64 Estimated GFR > 60 BUN/Creatinine Ratio 32.8 H Glucose 128 H POC Whole Bld Glucose 124 H Calcium 8.6 Total Bilirubin 0.4 AST 21 ALT 10 Alkaline Phosphatase 48 Total Protein 5.9 L Albumin 2.9 L Globulin 3.0 Albumin/Globulin Ratio 1.0 [facility] Medical History Diabetes Perforated ulcer of intestine Social History household members: family and children other: She lives with her daughter, recently moved back from a [facility]. Smoking Status: Never smoker alcohol intake: never Assessment & Plan Time-Based Coding :: [TOTAL MINUTES] spent with patient and on the chart (including review of chart, obtaining history, exam, reviewing outside data, placing orders, documenting exam and treatment plan, and counseling patient) on [DATE].
--- NOTE | 2025-04-06 16:23 | CM.DPC ---
DCP HH vs SNF Per MD and Surgeon, pt's NGT was removed and slowly advancing her diet and not yet stable for discharge today. Per PT eval today, pt able to participate some and depending on how much assist Dtr can provide recommending HH vs SNF. SW met bedside with pt again today and discussed recommendation of HH vs SNF and pt confirms her preference is home and not going to a facility and discussed HH and pt states she will need to think about it and wants Dtr's input before making a decision. Dtr was bedside earlier but gone for today. Plan: SW to follow closely in the AM after further PT and then to discuss with pt and Dtr recommendation of HH vs SNF at d/c. RAMIRO Nesbitt
[2025-04-06 17:00] VITALS: BP 121/68; PULSE 94; RESP 35; TEMP 36.6; O2SAT 96
[2025-04-06 19:59] VITALS: BP 123/65; PULSE 83; RESP 15; TEMP 36.6; O2SAT 94
[2025-04-07] VITALS (8 sets, daily range): BP systolic 113–140; BP diastolic 63–77; PULSE 78–87; RESP 16–20; TEMP 36.1–36.5; O2SAT 94–98
--- NOTE | 2025-04-07 01:56 | PC.NURSE ---
Pt moved from 226 to room 223 with all belongings. Oriented to room, call light, bed controls and tv controls. Declines scd's. Agrees to call for assistance as needed. Bed alarm on for safety.
[2025-04-07] MEDS: PIPERACILLIN/TAZO 3.375 GM in SODIUM CHLORIDE 0.9% 100 ML IV ×2 (03:01→14:47)
[2025-04-07 05:13] LABS: Hematocrit 21.6 % (36-46); Hemoglobin 7.5 g/dL (12.0-16.0); Mean Corpuscular HGB Conc 34.9 % (30-36); Mean Corpuscular Hemoglobin 28.9 PG (26-34); Mean Corpuscular Volume 82.7 fL (80-100); Platelet Count 440 X10^3/uL (150-400)
[2025-04-07 05:32] LABS: Alanine Aminotransferase 10 IU/L (<35); Albumin 2.7 g/dL (3.5-5.0); Albumin Globulin Ratio 1.0 (1.0-2.8); Alkaline Phosphatase 45 U/L (38-126); Blood Urea Nitrogen 18 mg/dL (7-17); Calcium 8.2 mg/dL (8.4-10.2); Carbon Dioxide 27 mmol/L (22-32); Chloride 95 mmol/L (98-107); Estimated Glomerular Filt Rate > 60 mL/min (>60); Globulin 2.8 g/dL (1.7-4.1); Glucose 92 mg/dL (70-99); HEMOLYSIS < 15 (0-50); Sodium 128 mmol/L (137-145); Total Protein 5.5 g/dL (6.3-8.2)
[2025-04-07 05:38] LABS: Potassium 2.7 mmol/L (3.4-5.1)
[2025-04-07] MEDS: SUCRALFATE 1 GM/10 ML ORAL SUSP PO ×4 (07:41→21:11)
[2025-04-07] MEDS: POTASSIUM CHLORIDE 20 MEQ TAB 40 MEQ PO ×4 (07:52→21:08)
--- NOTE | 2025-04-07 08:30 | P.PN_ITS ---
Subjective Subjective Date Patient Seen: 04/07/25 Time Patient Seen: 08:15 Interval history: Patient is a 74-year-old white female postoperative day 4. Exploratory laparotomy for pneumoperitoneum with disruption of gastrojejunostomy anastomosis. Patient is slightly cranky today but minimal incisional discomfort tolerating soft diet well passing flatus denies any rectal bleeding or nausea or vomiting. Patient did have a low potassium which was being replaced. Patient has an acute drop in her H&H. Morning laboratory shows WBC of 11.0 hemoglobin is decreased to 7.5 hematocrit is decreased to 21.6 platelets are 4 and 40,000 sodium is 128 potassium is 2.9 random blood sugar is 95 bicarb is 27 BUN of 18 creatinine 0.65 random blood sugar is 92 normal LFTs. Patient's path report is still pending. Vitals: Temperature is 96.9? pulse 82 respirations 18 BP is 121 over 67 SaO2 is 98%. ZEESHAN output is 40 cc clear Heart regular rate and rhythm without murmurs. Lungs are clear but diminished in the bases poor inspiratory and expiratory effort poor chest wall motion noted. Abdomen good active bowel sounds drains are intact incision is clean and dry no signs of infection or inflammation. Impression: Postoperative day 4. Exploratory laparotomy for pneumoperitoneum with disruption of gastrojejunostomy anastomosis Drop in hemoglobin 7.5 hematocrit is 21.6 Drop in potassium 2.7 Plan: Discussed with patient the findings we will go ahead and replace potassium we will give blood transfusion due to the low H&H we will recheck later today and in the a.m. continue with current diet patient has no signs of peptic ulcer disease at this time or overt signs of bleeding from the drains we will follow patient closely. We will turn the patient over to Dr. Browne in the a.m.. Exam Vital Signs (past 8 hours): - 04/07/25 08:00 Temperature 96.9 F L Pulse Rate 82 Respiratory Rate 18 Blood Pressure 121/67 Pulse Oximetry 98 Oxygen Delivery Method Room Air Oxygen Flow Rate 0 Objective Labs 04/07/25 04:46 04/07/25 04:46 Labs: Laboratory Results - last 24 hr 04/07/25 04:46 WBC 11.0 RBC 2.61 L Hgb 7.5 L Hct 21.6 L MCV 82.7 MCH 28.9 MCHC 34.9 RDW 15.0 H Plt Count 440 H Sodium 128 L Potassium 2.7 L* Chloride 95 L Carbon Dioxide 27 BUN 18 H Creatinine 0.65 Estimated GFR > 60 BUN/Creatinine Ratio 27.7 H Glucose 92 Calcium 8.2 L Total Bilirubin 0.3 AST 20 ALT 10 Alkaline Phosphatase 45 Total Protein 5.5 L Albumin 2.7 L Globulin 2.8 Albumin/Globulin Ratio 1.0 [facility] Medical History Diabetes Perforated ulcer of intestine Social History household members: family and children other: She lives with her daughter, recently moved back from a [facility]. Smoking Status: Never smoker alcohol intake: never Assessment & Plan Time-Based Coding :: [TOTAL MINUTES] spent with patient and on the chart (including review of chart, obtaining history, exam, reviewing outside data, placing orders, documenting exam and treatment plan, and counseling patient) on [DATE]. PROFEE Business Process Modeler Document charge(s): Yes
[2025-04-07] MEDS: AMLODIPINE 5 MG TABLET PO (09:25)
[2025-04-07] MEDS: METOPROLOL ER 25 MG TABLET PO (09:25)
[2025-04-07] MEDS: SODIUM CHLORIDE 0.9% FLUSH 10 ML IV ×2 (09:25→21:08)
[2025-04-07] MEDS: PANTOPRAZOLE 40 MG VIAL IV ×2 (09:25→21:08)
[2025-04-07] MEDS: ENOXAPARIN 40 MG/0.4 ML SYRINGE SUBCUT (09:25)
--- NOTE | 2025-04-07 13:34 | PT-IP ANOTE ---
EMR reviewed and pt with low H&H and low potassium. checked with nurse and pt will be getting blood transfusion. will hold PT at this time. will f/u.
--- NOTE | 2025-04-07 15:16 | PM.PN.1 ---
Subjective Subjective Date Patient Seen: 04/07/25 Interval history: Chief complaint: Abdominal pain secondary to perforation at previous anastomosis 3 years ago History of present illness: 04/03: 74-year-old who presented with nausea, vomiting, and he would this for 5 days. She also had melena for several weeks. In the emergency department she was found to have WBC of 13.3. A CT of the abdomen revealed free air consistent with perforation. She does have a history of peptic ulcer disease and a history of perforation in the past. She was seen by General surgery and taken to the operating room where she underwent laparotomy with repair of the anterior gastric staple line from her previous gastrojejunostomy. She did well and was extubated and brought to the ICU postoperatively. Past history includes peptic ulcer disease, previous perforation, hypertension, and dyslipidemia. 04/04: Postoperatively, she was seen in the ICU. Though she was relatively comfortable. She denies any dyspnea, or chest pain. She was some left upper quadrant tenderness. A nasogastric tube is in place. 04/04-04/05: Continued to improve nasogastric tube removed 04/06: No complaints at this time no nausea or vomiting she is alert and cogent bowel sounds are present she is passing gas tolerating diet 04/07: No further complaints at this time tolerating diet hemoglobin dropped to 7.5 and potassium dropped to 2.7 which are being replaced by surgery team For objective laboratory data see the bottom of the page Assessment and plan: Gastric perforation from breaking down of anterior suture line from previous gastrojejunostomy improved Management per surgery service DVT prophylaxis per surgery service Code status: Full code blue Disposition: At discretion of General surgery attending service Did require 1 unit of packed red blood cell and potassium replacement 04/07: 35 minutes were involved in the management of this patient including [id number] evaluation physical examination consultation with surgery service Exam Vital Signs (past 8 hours): - 04/07/25 08:00 04/07/25 09:25 04/07/25 10:33 Temperature 96.9 F L Pulse Rate 82 82 87 Respiratory Rate 18 Blood Pressure 121/67 121/67 125/77 Pulse Oximetry 98 Oxygen Flow Rate 04/07/25 10:54 04/07/25 11:18 04/07/25 12:46 Temperature 97.1 F L 96.9 F L 97.7 F Pulse Rate 87 79 81 Respiratory Rate 16 16 17 Blood Pressure 125/77 113/63 117/67 Pulse Oximetry 97 Oxygen Flow Rate 0 04/07/25 14:29 Temperature 97.3 F L Pulse Rate 80 Respiratory Rate 16 Blood Pressure 132/72 Pulse Oximetry Oxygen Flow Rate Oxygen Delivery Method Room Air Oxygen Flow Rate 0 Objective Labs 04/07/25 04:46 04/07/25 04:46 Labs: Laboratory Results - last 24 hr 04/07/25 04/07/25 04:46 09:16 WBC 11.0 RBC 2.61 L Hgb 7.5 L Hct 21.6 L MCV 82.7 MCH 28.9 MCHC 34.9 RDW 15.0 H Plt Count 440 H Sodium 128 L Potassium 2.7 L* Chloride 95 L Carbon Dioxide 27 BUN 18 H Creatinine 0.65 Estimated GFR > 60 BUN/Creatinine Ratio 27.7 H Glucose 92 Calcium 8.2 L Total Bilirubin 0.3 AST 20 ALT 10 Alkaline Phosphatase 45 Total Protein 5.5 L Albumin 2.7 L Globulin 2.8 Albumin/Globulin Ratio 1.0 Blood Type O Positive Antibody Screen Negative Crossmatch See Detail [facility] Medical History Diabetes Perforated ulcer of intestine Social History household members: family and children other: She lives with her daughter, recently moved back from a [facility]. Smoking Status: Never smoker alcohol intake: never Assessment & Plan Time-Based Coding :: [TOTAL MINUTES] spent with patient and on the chart (including review of chart, obtaining history, exam, reviewing outside data, placing orders, documenting exam and treatment plan, and counseling patient) on [DATE].
--- NOTE | 2025-04-07 15:25 | PT.IPTN ---
Current Diagnoses Chronic or unspecified peptic ulcer, site unspecified, with hemorrhage (04/03/25) Surgery Performed Operation Date: 04/03/25 12:15 Actual Procedures p REPAIR OF PERFORATED ANASTOMOTIC ULCER; RESECTION OF JEJUNUM, HANDSEW ANASTAMOSIS(Not Applicable) - Jamie Su DO Physical Therapy Treatment Note M2 PT-IP Current Condition Start: 04/05/25 10:21 Freq: NEEDED Status: Active Protocol: Document 04/06/25 11:29 MB (Rec: 04/06/25 11:59 MB Desktop) Physical Therapy Current Condition Current Condition Evaluation Date 04/06/25 Treatment Diagnosis Perforated anastomotic ulcer s/p surgery M3 PT-IP Subjective Start: 04/05/25 10:21 Freq: NEEDED Status: Active Protocol: Document 04/07/25 15:25 AB (Rec: 04/07/25 16:12 AB [id number]) Subjective Physical Therapy Visit Type Type Treatment Note Visit Start Time 15:25 Visit Stop Time 15:55 Number of SENIOR C WEB DEVELOPER Visits 0 Physical Therapy Visit Comments Patient Comments pt wants to get up and use the toilet Therapy Pain Assessment Pain When Pain Assessed At Rest Pain Present Pain Present Pain Reported Location Upper abdome Intensity 6 Scale Used Numeric (0 - 10) Pain Behaviors Guarding Pain Management Distraction,Modification of Treatment,Re-positioning Techniques M4 PT-IP Mobility and Gait Start: 04/05/25 10:21 Freq: NEEDED Status: Active Protocol: Document 04/07/25 15:25 AB (Rec: 04/07/25 16:12 AB [id number]) PT-Bed Mobility Assessment Rolling Level of Assist Minimal Assistance Supine to Sit Supine to Sit Minimal Assistance,1 Person Assistance,Head of Bed Elevated,Bedrails PT-Transfer Assessment Sit to and From Stand Sit to and from Contact Guard Assistance,1 Person Assistance,Use of Stand Upper Extremities Equipment Transfer Assistive Gait Belt,Front Wheeled Walker Device Orthotic/Prosthetic No Devices or Brace: Transfers Transfer Destination Toilet Transfer Technique ambulated Transfer Ability Level of Assist Standby Assistance,Contact Guard Assistance,1 Person Assistance,Use of Upper Extremities Comments Mobility Comments checked with nurse and pt completed blood transfusion ~ 1 hour ago. check with pt and wants to use the toilet . BP: 125/70. educated pt regarding abdominal precautions and log roll bed mobility. completed log roll supine to sit min A and max cues. pt used bed rail to assist. pt needed frequent and increase rest breaks in between activities due to c/o increase abdominal pain and weakness. sat on EOB for a few minutes. pt tends to direct her own care. sit to stand from EOB CGA and ambulated to the toilet using FWW initial CGA but able to ambulate SBA after 10 ft of walking. pt presents with slow paced gait. pt sat on the toilet and wants to use the toilet for a few minutes. call light placed next to pt and instructed to call for assistance when ready. informed nurse. Gait Assessment Gait Gait Assistance Standby Assistance,Contact Guard Assist Required: Distance (Feet) 30 Able to Maintain Yes Weight Bearing Status During Gait Assistive Devices Assistive Device Gait Belt,Front Wheeled Walker Orthotic/Prosthetic No Devices or Brace: Gait Deviations General Gait Pattern Decreased Stride Length,Decreased Feet Clearance Factors Limiting Gait Function Factors Limiting Decreased Activity Tolerance,Decreased Strength,Pain, Gait Function Poor Balance,Poor Safety Awareness M5 PT-IP Objective Assessments Start: 04/05/25 10:21 Freq: NEEDED Status: Active Protocol: Document 04/06/25 11:29 MB (Rec: 04/06/25 11:59 MB Desktop) Orientation Orientation/Cognition Level of Alertness Alert Orientation Name,Birthday,Situation Language Function No Deficits Noted Ability Safety Awareness Decreased Safety Awareness Memory Description No Deficits Noted Gross Range of Motion Upper Extremity ROM Assessment Within Functional Limits Impairments Did not push today given abdominal discomfort and arm appears WFLs Lower Extremity ROM Assessment Within Functional Limits Strength Lower Extremity Strength Assessment Within Functional Limits Coordination Assessment Assessment Coordination NT Comments Sensation Assessment Sensation Gross Sensation WNL Muscle Tone Muscle Tone WNL Yes M6 PT-IP Treatment Start: 04/05/25 10:21 Freq: NEEDED Status: Active Protocol: Document 04/07/25 15:25 AB (Rec: 04/07/25 16:12 AB [id number]) Physical Therapy Treatment Education Education Provided Precautions,Safety M7 PT-IP Assessment and Plan Start: 04/05/25 10:21 Freq: NEEDED Status: Active Protocol: Document 04/07/25 15:25 AB (Rec: 04/07/25 16:12 AB [id number]) PT Summary Assessment and Plan Potential Rehabilitation Fair Potential Summary Impairments Pain,ROM,Strength,Balance,Coordination,Sensation,Tone, Cognition,Bed Mobility,Transfers,Gait,Activity Tolerance Progress Towards Slow Progress due to Pain,Slow Progress due to Medical Goals Issues,Slow Progress due to Activity Tolerance Assessment Summary pt requiring min A with bed mobility, CGA for sit to stand and SBA to CGA for ambulation using FWW a cues with all tasks. pt needing increase rest breaks in between tasks and has decrease activity tolerance affecting level of assistance. d/c plan depending on progress. Goals Bed Mobility Goal Independent Transfer Goal Independent,Four Wheeled Walker Gait Goal Independent,Four Wheel Walker Gait Distance 100 Days to Meet Goals 10 Frequency of Treatment Frequency Of Once a Day Treatment Treatment Plan Physical Therapy Bed Mobility Training,Transfer Training,Gait Training, Treatment Plan Therapeutic Exercise,Balance Retraining,Post Op Education,Discharge Planning,Hot or Cold Pack, Neuromuscular Re-ed,Coordination Retraining,Manual Therapy Precautions Abdominal Surgery Log Roll,Lifting Restrictions,Gait Belt above Precautions Incisional Area Recommendations To Nursing Amount of Assist 1 Person Assist Needed Discharge Recommendations PT Discharge Home with / Assist Available,Home Health,SNF Rehab Recommendations Transportation Needs Private Vehicle,Wheelchair/Cabulance at Discharge - PT assist 1
[2025-04-07] MEDS: HYDROCODONE/ACET 5/325 TABLET 1 TAB PO ×2 (15:36→21:27)
[2025-04-07] MEDS: POTASSIUM CHLORIDE 20 MEQ TAB 10 MEQ PO (16:44)
[2025-04-07 17:32] LABS: Add Manual Diff / Slide Review NO; Hematocrit 29.0 % (36-46); Hemoglobin 10.0 g/dL (12.0-16.0); Lymphocytes Absolute Auto 1900 /uL (1100-4500); Mean Corpuscular HGB Conc 34.5 % (30-36); Mean Corpuscular Hemoglobin 28.3 PG (26-34); Mean Corpuscular Volume 82.0 fL (80-100); Platelet Count 455 X10^3/uL (150-400)
[2025-04-07 17:47] LABS: Blood Urea Nitrogen 13 mg/dL (7-17); Calcium 8.6 mg/dL (8.4-10.2); Carbon Dioxide 25 mmol/L (22-32); Chloride 95 mmol/L (98-107); Estimated Glomerular Filt Rate > 60 mL/min (>60); Glucose 92 mg/dL (70-99); HEMOLYSIS < 15 (0-50); Sodium 130 mmol/L (137-145)
[2025-04-07 17:54] LABS: Potassium 2.7 mmol/L (3.4-5.1)
[2025-04-08] MEDS: KCL 20 MEQ IN NS 1,000 ML 84 MEQ IV ×2 (01:18→16:21)
[2025-04-08] MEDS: METOCLOPRAMIDE 10 MG/2 ML INJ 5 MG IV (01:19)
[2025-04-08] MEDS: PIPERACILLIN/TAZO 3.375 GM in SODIUM CHLORIDE 0.9% 100 ML IV ×3 (02:44→22:05)
[2025-04-08] MEDS: SUCRALFATE 1 GM/10 ML ORAL SUSP PO ×4 (06:57→22:05)
[2025-04-08 07:54] LABS: Hematocrit 28.2 % (36-46); Hemoglobin 10.0 g/dL (12.0-16.0); Mean Corpuscular HGB Conc 35.3 % (30-36); Mean Corpuscular Hemoglobin 28.7 PG (26-34); Mean Corpuscular Volume 81.3 fL (80-100); Platelet Count 501 X10^3/uL (150-400)
[2025-04-08 08:15] VITALS: BP 152/75; PULSE 77; RESP 20; O2SAT 96
[2025-04-08] MEDS: POTASSIUM CHLORIDE 20 MEQ TAB 10 MEQ PO ×2 (08:30→17:18)
[2025-04-08 08:32] LABS: Magnesium 1.0 mg/dL (1.6-2.3)
[2025-04-08 08:33] LABS: Alanine Aminotransferase 12 IU/L (<35); Albumin 3.1 g/dL (3.5-5.0); Albumin Globulin Ratio 1.1 (1.0-2.8); Alkaline Phosphatase 53 U/L (38-126); Blood Urea Nitrogen 9 mg/dL (7-17); Calcium 8.6 mg/dL (8.4-10.2); Carbon Dioxide 22 mmol/L (22-32); Chloride 97 mmol/L (98-107); Estimated Glomerular Filt Rate > 60 mL/min (>60); Globulin 2.7 g/dL (1.7-4.1); Glucose 96 mg/dL (70-99); HEMOLYSIS < 15 (0-50); Potassium 3.9 mmol/L (3.4-5.1); Sodium 130 mmol/L (137-145); Total Protein 5.8 g/dL (6.3-8.2)
--- NOTE | 2025-04-08 08:55 | PM.PN.1 ---
Subjective Subjective Interval history: S: She was doing well, minimal abdominal pain. She has been somewhat reluctant to ambulate. She denies nausea. Exam Vital Signs (past 8 hours): - 04/08/25 08:15 Pulse Rate 77 Respiratory Rate 20 Blood Pressure 152/75 H Pulse Oximetry 96 Oxygen Delivery Method Room Air Oxygen Flow Rate 0 Narrative Exam Narrative: NAD, alert and oriented. Fluent speech. Flat affect. Lungs are clear, normal rate and effort. Heart is regular, no murmur gallop or rub. Abdomen is soft, non distended. Extremities are free of edema. Objective Labs 04/08/25 07:38 04/08/25 07:38 Labs: Laboratory Results - last 24 hr 04/07/25 04/07/25 04/08/25 09:16 17:14 07:38 WBC 10.7 10.1 RBC 3.53 L 3.47 L Hgb 10.0 L 10.0 L Hct 29.0 L 28.2 L MCV 82.0 81.3 MCH 28.3 28.7 MCHC 34.5 35.3 RDW 15.0 H 14.9 H Plt Count 455 H 501 H Neut % (Auto) 65.8 Lymph % (Auto) 18.2 L [place] % (Auto) 9.2 Eos % (Auto) 6.0 H Baso % (Auto) 0.8 Neut # (Auto) 7000 Lymph # (Auto) 1900 [place] # (Auto) 1000 H Eos # (Auto) 600 H Baso # (Auto) 100 Sodium 130 L 130 L Potassium 2.7 L* 3.9 D Chloride 95 L 97 L Carbon Dioxide 25 22 BUN 13 9 Creatinine 0.67 0.51 L Estimated GFR > 60 > 60 BUN/Creatinine Ratio 19.4 17.6 Glucose 92 96 Calcium 8.6 8.6 Magnesium 1.0 L Total Bilirubin 0.7 AST 26 ALT 12 Alkaline Phosphatase 53 Total Protein 5.8 L Albumin 3.1 L Globulin 2.7 Albumin/Globulin Ratio 1.1 Blood Type O Positive Antibody Screen Negative Crossmatch See Detail [facility] Medical History Diabetes Perforated ulcer of intestine Social History household members: family and children other: She lives with her daughter, recently moved back from a [facility]. Smoking Status: Never smoker alcohol intake: never Assessment & Plan Assessment & Plan narrative: 1. Gastric perforation with pneumoperitoneum from breaking down of an anterior suture line from previous gastrojejunostomy. Present on admission and improved after laparotomy and repair. 2. Peptic ulcer disease, active. 3. Hypertension, stable. PLAN: -PPI BID -OOB, physical theraly. Time-Based Coding :: [TOTAL MINUTES] spent with patient and on the chart (including review of chart, obtaining history, exam, reviewing outside data, placing orders, documenting exam and treatment plan, and counseling patient) on [DATE].
[2025-04-08 10:06] VITALS: BP 132/75; PULSE 77
[2025-04-08] MEDS: METOPROLOL ER 25 MG TABLET PO (10:06)
[2025-04-08] MEDS: SODIUM CHLORIDE 0.9% FLUSH 10 ML IV ×2 (10:06→22:06)
[2025-04-08] MEDS: ENOXAPARIN 40 MG/0.4 ML SYRINGE SUBCUT (10:06)
[2025-04-08] MEDS: AMLODIPINE 5 MG TABLET PO (10:07)
[2025-04-08] MEDS: PANTOPRAZOLE 40 MG VIAL IV ×2 (10:07→22:05)
[2025-04-08] MEDS: MAGNESIUM SULFATE 4 GM/100 ML PIGGYBACK IV (10:07)
[2025-04-08] MEDS: HYDROCODONE/ACET 5/325 TABLET 1 TAB PO ×3 (11:19→22:04)
[2025-04-08 12:12] VITALS: BP 132/69; PULSE 78
--- NOTE | 2025-04-08 13:47 | PM.PN.IH.1 ---
Subjective Subjective Date Patient Seen: 04/08/25 Time Patient Seen: 13:48 Interval history: Alisia had some black liquid stool overnight Tolerating some diet but minimal appetite She feels too weak and fatigued to go home today Exam Vital Signs (past 8 hours): - 04/08/25 08:15 04/08/25 10:06 04/08/25 12:12 Pulse Rate 77 77 78 Respiratory Rate 20 Blood Pressure 152/75 H 132/75 132/69 Pulse Oximetry 96 Oxygen Delivery Method Room Air Oxygen Flow Rate 0 Narrative Exam Narrative: Abdomen is soft, nontender Incision clean dry and intact Drains are serous Objective Labs 04/08/25 07:38 04/08/25 07:38 Labs: Laboratory Results - last 24 hr 04/07/25 04/07/25 04/08/25 09:16 17:14 07:38 WBC 10.7 10.1 RBC 3.53 L 3.47 L Hgb 10.0 L 10.0 L Hct 29.0 L 28.2 L MCV 82.0 81.3 MCH 28.3 28.7 MCHC 34.5 35.3 RDW 15.0 H 14.9 H Plt Count 455 H 501 H Neut % (Auto) 65.8 Lymph % (Auto) 18.2 L [place] % (Auto) 9.2 Eos % (Auto) 6.0 H Baso % (Auto) 0.8 Neut # (Auto) 7000 Lymph # (Auto) 1900 [place] # (Auto) 1000 H Eos # (Auto) 600 H Baso # (Auto) 100 Sodium 130 L 130 L Potassium 2.7 L* 3.9 D Chloride 95 L 97 L Carbon Dioxide 25 22 BUN 13 9 Creatinine 0.67 0.51 L Estimated GFR > 60 > 60 BUN/Creatinine Ratio 19.4 17.6 Glucose 92 96 Calcium 8.6 8.6 Magnesium 1.0 L Total Bilirubin 0.7 AST 26 ALT 12 Alkaline Phosphatase 53 Total Protein 5.8 L Albumin 3.1 L Globulin 2.7 Albumin/Globulin Ratio 1.1 Crossmatch See Detail [facility] Medical History Diabetes Perforated ulcer of intestine Social History household members: family and children other: She lives with her daughter, recently moved back from a [facility]. Smoking Status: Never smoker alcohol intake: never Assessment & Plan Assessment and plan (1) Perforated ulcer of intestine: Status: Acute Plan Plan to removed drains tomorrow Home when strong enough to perform ADLs independently, possibly tomorrow Time-Based Coding :: [TOTAL MINUTES] spent with patient and on the chart (including review of chart, obtaining history, exam, reviewing outside data, placing orders, documenting exam and treatment plan, and counseling patient) on [DATE]. PROFEE Bulk Sausage Casing Tier Off Document charge(s): No
--- NOTE | 2025-04-08 16:09 | DIET.CONS ---
Dietary Consultation Note Admission Date: 04/03/2025 11:21 Assessment: 74 y F admitted for perforated ulcer of intestine. Dietitian screened for LOS. Met with pt at bedside. Reports feeling better today and will attempt some dinner. Will try an Ensure with dinner. Stable weight, general decrease in appetite that pt associates with aging. Ht: 154.94 cm Wt: 61.235 kg BMI: 25.4 Last BM: 04/08/25 (04/08/25 03:26) MNA: 14 Anish Score: 20 Diet: 04/06/25 Dinner Soft,Low Fiber (Low residue) Diet Diet Modifications: May Advance Diet as Tolerated: Yes Food Texture: Level 7 - Regular Liquid Consistency: Level 0 - Thin Nutrition Percent Meal Consumed 0% 04/08/25 14:12 Percent Meal Consumed 0% 04/08/25 12:27 Percent Meal Consumed 0% 04/08/25 12:20 Percent Meal Consumed 0% 04/07/25 14:00 Percent Meal Consumed 100% 04/07/25 08:44 Percent Meal Consumed 0% 04/06/25 18:00 Labs: RBC 3.47 X10^6/uL (4.0-5.2) L 04/08/25 07:38 Hgb 10.0 g/dL (12.0-16.0) L 04/08/25 07:38 Hct 28.2 % (36-46) L 04/08/25 07:38 Creatinine 0.51 mg/dL (0.52-1.04) L 04/08/25 07:38 Nutrition Diagnosis: Inadequate oral intake r/t altered GI function/structure aeb 5 days minimal PO intakes <25% Interventions: -Ensure Max/plus until appetite increases EER: 70 g protein (1.2 g/kg per post surgery) 1500 kcals (25 kcals/kg per BMI) Monitoring/Evaluations: PO intakes, ONS tolerance Electronically Signed by: Siobhan Sheets 04/08/25 16:09 Clinical Dietitian [address] [address]
--- NOTE | 2025-04-08 16:58 | CM.DPNOTE ---
DCP Continued: Reviewed EMR and team rounds for pt?s medical status. Per PT, recommending home health or SNF to regain mobility strength during recovery. DCP entered room, introduced self and role. Pt confirmed that she does not wish to go to a SNF. Pt states she would defer to daughterGabriella, for discharge planning at this time. Per daughter, she requests for pt to discharge on Sunday morning, 04/10 after she can get the house together. DCP calls pt daughter, Gabriella, and discusses PT recommendations. DCP reviews Medicare Choice list with daughter and notifies that [facility] does not serve [facility]. Dtr identifies preference for [facility] and consents to referral to be sent. DCP sent referral via secure email to [facility] with signed [id number] order. Plan: Anticipating discharge with daughter to transport on 04/10 or when medically cleared. CM Team will continue to follow for coordination of discharge plans. JEFFERY Teixeira
[2025-04-08 18:21] LABS: Blood Urea Nitrogen 7 mg/dL (7-17); Calcium 8.4 mg/dL (8.4-10.2); Carbon Dioxide 23 mmol/L (22-32); Chloride 96 mmol/L (98-107); Estimated Glomerular Filt Rate > 60 mL/min (>60); Glucose 97 mg/dL (70-99); HEMOLYSIS < 15 (0-50); Magnesium 2.1 mg/dL (1.6-2.3); Potassium 3.5 mmol/L (3.4-5.1); Sodium 128 mmol/L (137-145)
--- NOTE | 2025-04-08 19:40 | PT.IPTN ---
Current Diagnoses Chronic or unspecified peptic ulcer, site unspecified, with hemorrhage (04/03/25) Perforation of intestine (nontraumatic) (04/03/25) Surgery Performed Operation Date: 04/03/25 12:15 Actual Procedures p REPAIR OF PERFORATED ANASTOMOTIC ULCER; RESECTION OF JEJUNUM, HANDSEW ANASTAMOSIS(Not Applicable) - Jamie Su DO Physical Therapy Treatment Note M2 PT-IP Current Condition Start: 04/05/25 10:21 Freq: NEEDED Status: Active Protocol: Document 04/06/25 11:29 MB (Rec: 04/06/25 11:59 MB Desktop) Physical Therapy Current Condition Current Condition Evaluation Date 04/06/25 Treatment Diagnosis Perforated anastomotic ulcer s/p surgery M3 PT-IP Subjective Start: 04/05/25 10:21 Freq: NEEDED Status: Active Protocol: Document 04/08/25 19:33 GRILL CHEF (Rec: 04/08/25 19:40 GRILL CHEF Laptop) Subjective Physical Therapy Visit Type Type Treatment Note Visit Start Time 16:50 Visit Stop Time 17:17 Number of PURCHASING/RECEIVING Visits 0 Physical Therapy Visit Comments Patient Comments Pt resting in bed, agreeable to PT tx after pain meds given prior to session. Nurse cleared pt for PT. Therapy Pain Assessment Pain When Pain Assessed During Mobility Pain Present Pain Present Pain Reported Location Upper abdome Intensity 7 Scale Used Numeric (0 - 10) M4 PT-IP Mobility and Gait Start: 04/05/25 10:21 Freq: NEEDED Status: Active Protocol: Document 04/08/25 19:33 GRILL CHEF (Rec: 04/08/25 19:40 GRILL CHEF Laptop) PT-Bed Mobility Assessment Rolling Type of Rolling Log Rolling Level of Assist Contact Guard Assistance Supine to Sit Supine to Sit Minimal Assistance Scooting Scooting Up and Down Independent in Bed PT-Transfer Assessment Sit to and From Stand Sit to and from Contact Guard Assistance,Use of Upper Extremities Stand Equipment Transfer Assistive Front Wheeled Walker Device Orthotic/Prosthetic No Devices or Brace: Transfers Transfer Destination Chair Transfer Technique Stand Step Pivot Transfer Ability Level of Assist Contact Guard Assistance Comments Mobility Comments Pt performs log roll with VC x1 to avoid twisting with CGA, sit<>stand CGA to RW, amb ~75' CGA with RW with slow but steady pattern, left in recliner at end of session with increasing abd pain. Gait Assessment Gait Gait Assistance Contact Guard Assist Required: Distance (Feet) 75 Able to Maintain Yes Weight Bearing Status During Gait Assistive Devices Assistive Device Gait Belt,Front Wheeled Walker Orthotic/Prosthetic No Devices or Brace: Gait Deviations General Gait Pattern Decreased Stride Length,Flexed Trunk Factors Limiting Gait Function Factors Limiting Decreased Activity Tolerance,Decreased Strength,Pain Gait Function Comments Gait Comments decrease gait speed PT-Balance Assessment Sitting Balance and Reactions Static Sitting Normal Balance Ability Dynamic Sitting Normal Balance Ability Standing Balance and Reactions Static Standing Good Balance Ability Dynamic Standing Good Balance Ability M5 PT-IP Objective Assessments Start: 04/05/25 10:21 Freq: NEEDED Status: Active Protocol: Document 04/06/25 11:29 MB (Rec: 04/06/25 11:59 MB Desktop) Orientation Orientation/Cognition Level of Alertness Alert Orientation Name,Birthday,Situation Language Function No Deficits Noted Ability Safety Awareness Decreased Safety Awareness Memory Description No Deficits Noted Gross Range of Motion Upper Extremity ROM Assessment Within Functional Limits Impairments Did not push today given abdominal discomfort and arm appears WFLs Lower Extremity ROM Assessment Within Functional Limits Strength Lower Extremity Strength Assessment Within Functional Limits Coordination Assessment Assessment Coordination NT Comments Sensation Assessment Sensation Gross Sensation WNL Muscle Tone Muscle Tone WNL Yes M6 PT-IP Treatment Start: 04/05/25 10:21 Freq: NEEDED Status: Active Protocol: Document 04/08/25 19:33 GRILL CHEF (Rec: 04/08/25 19:40 GRILL CHEF Laptop) Physical Therapy Treatment Education Education Provided Precautions,Safety M7 PT-IP Assessment and Plan Start: 04/05/25 10:21 Freq: NEEDED Status: Active Protocol: Document 04/08/25 19:33 GRILL CHEF (Rec: 04/08/25 19:40 GRILL CHEF Laptop) PT Summary Assessment and Plan Potential Rehabilitation Fair Potential Summary Impairments Pain,ROM,Strength,Balance,Coordination,Sensation,Tone, Cognition,Bed Mobility,Transfers,Gait,Activity Tolerance Progress Towards Slow Progress due to Pain,Slow Progress due to Medical Goals Issues,Slow Progress due to Activity Tolerance Assessment Summary pt requiring CGA with bed mobility, CGA for sit to stand and SBA to CGA for ambulation using FWW and min cues for all tasks. Pt with improved activity tolerance not needing rest break this session. d/c plan depending on progress. Goals Bed Mobility Goal Independent Transfer Goal Independent,Four Wheeled Walker Gait Goal Independent,Four Wheel Walker Gait Distance 100 Days to Meet Goals 10 Frequency of Treatment Frequency Of Once a Day Treatment Treatment Plan Physical Therapy Bed Mobility Training,Transfer Training,Gait Training, Treatment Plan Therapeutic Exercise,Balance Retraining,Post Op Education,Discharge Planning,Hot or Cold Pack, Neuromuscular Re-ed,Coordination Retraining,Manual Therapy Precautions Abdominal Surgery Log Roll,Lifting Restrictions,Gait Belt above Precautions Incisional Area Recommendations To Nursing Amount of Assist Standby Assistance Needed Discharge Recommendations PT Discharge Home with 19/03 Assist Available,Home Health,SNF Rehab Recommendations Transportation Needs Private Vehicle,Wheelchair/Cabulance at Discharge - PT assist 1
[2025-04-08] MEDS: ACETAMINOPHEN 325 MG TABLET 650 MG PO (20:15)
[2025-04-08 20:30] VITALS: BP 130/79; PULSE 78; RESP 14; TEMP 36.2; O2SAT 96
[2025-04-09] MEDS: ACETAMINOPHEN 325 MG TABLET 650 MG PO ×2 (02:03→10:22)
[2025-04-09] MEDS: KCL 20 MEQ IN NS 1,000 ML 84 MEQ IV (03:26)
[2025-04-09] MEDS: PIPERACILLIN/TAZO 3.375 GM in SODIUM CHLORIDE 0.9% 100 ML IV (05:45)
[2025-04-09] MEDS: SUCRALFATE 1 GM/10 ML ORAL SUSP PO ×2 (07:36→21:54)
[2025-04-09] MEDS: HYDROCODONE/ACET 5/325 TABLET 1 TAB PO (07:36)
--- NOTE | 2025-04-09 07:37 | P.PN_ITS ---
Subjective Subjective Interval history: S: She was improving on a daily basis. She is eating today, hence has flatus and bowel movement which is described as slimy. No dyspnea. Exam Vital Signs (past 8 hours): Oxygen Delivery Method Room Air Oxygen Flow Rate 0 Narrative Exam Narrative: NAD, alert and oriented. Fluent speech. Lungs are clear, normal rate and effort. Heart is regular, no murmur gallop or rub. Abdomen is soft, non distended. Wound is inspected, is stapled, and appears to be unremarkable. She has [address] Extremities are free of edema. Objective Labs 04/08/25 07:38 04/08/25 18:00 Labs: Laboratory Results - last 24 hr 04/08/25 04/08/25 07:38 18:00 WBC 10.1 RBC 3.47 L Hgb 10.0 L Hct 28.2 L MCV 81.3 MCH 28.7 MCHC 35.3 RDW 14.9 H Plt Count 501 H Sodium 130 L 128 L Potassium 3.9 D 3.5 Chloride 97 L 96 L Carbon Dioxide 22 23 BUN 9 7 Creatinine 0.51 L 0.57 Estimated GFR > 60 > 60 BUN/Creatinine Ratio 17.6 12.3 Glucose 96 97 Calcium 8.6 8.4 Magnesium 1.0 L 2.1 Total Bilirubin 0.7 AST 26 ALT 12 Alkaline Phosphatase 53 Total Protein 5.8 L Albumin 3.1 L Globulin 2.7 Albumin/Globulin Ratio 1.1 [facility] Medical History Diabetes Perforated ulcer of intestine Social History household members: family and children other: She lives with her daughter, recently moved back from a [facility]. Smoking Status: Never smoker alcohol intake: never Assessment & Plan Assessment & Plan narrative: 1. Gastric perforation with pneumoperitoneum from breaking down of an anterior suture line from previous gastrojejunostomy. Present on admission and improved after laparotomy and repair. 2. Peptic ulcer disease, active. 3. Hypertension, stable. 4. Nausea, improved. PLAN: -PPI BID, continue. -OOB, physical therapy. -Abdominal drain out per General surgery. Time-Based Coding :: [TOTAL MINUTES] spent with patient and on the chart (including review of chart, obtaining history, exam, reviewing outside data, placing orders, documenting exam and treatment plan, and counseling patient) on [DATE].
[2025-04-09 08:00] VITALS: BP 117/66; PULSE 70; RESP 15; TEMP 35.8; O2SAT 98
[2025-04-09 10:22] VITALS: BP 117/63; PULSE 86
[2025-04-09] MEDS: SODIUM CHLORIDE 0.9% FLUSH 10 ML IV ×2 (10:22→21:55)
[2025-04-09] MEDS: METOPROLOL ER 25 MG TABLET PO (10:22)
[2025-04-09] MEDS: AMLODIPINE 5 MG TABLET PO (10:22)
[2025-04-09] MEDS: PANTOPRAZOLE 40 MG VIAL IV ×2 (10:24→21:54)
[2025-04-09 10:52] VITALS: PULSE 85
[2025-04-09 11:08] LABS: Blood Urea Nitrogen 8 mg/dL (7-17); Calcium 8.7 mg/dL (8.4-10.2); Carbon Dioxide 23 mmol/L (22-32); Chloride 98 mmol/L (98-107); Estimated Glomerular Filt Rate > 60 mL/min (>60); Glucose 92 mg/dL (70-99); HEMOLYSIS < 15 (0-50); Potassium 4.8 mmol/L (3.4-5.1); Sodium 127 mmol/L (137-145)
--- NOTE | 2025-04-09 13:49 | P.PN_ITS ---
Subjective Subjective Date Patient Seen: 04/09/25 Time Patient Seen: 13:49 Interval history: Doing well today. Tolerating diet and having bowel function. Exam Vital Signs (past 8 hours): - 04/09/25 08:00 04/09/25 09:15 04/09/25 10:22 Temperature 96.4 F L Pulse Rate 70 86 Respiratory Rate 15 Blood Pressure 117/66 117/63 Pulse Oximetry 98 Oxygen Delivery Method Room Air Oxygen Flow Rate 0 04/09/25 10:52 Temperature Pulse Rate 85 Respiratory Rate Blood Pressure Pulse Oximetry Oxygen Delivery Method Oxygen Flow Rate Oxygen Delivery Method Room Air Oxygen Flow Rate 0 Narrative Exam Narrative: Abdomen is soft, incision clean dry and intact Drains with scant serous fluid Objective Labs 04/08/25 07:38 04/09/25 10:50 Labs: Laboratory Results - last 24 hr 04/08/25 04/09/25 18:00 10:50 Sodium 128 L 127 L Potassium 3.5 4.8 D Chloride 96 L 98 Carbon Dioxide 23 23 BUN 7 8 Creatinine 0.57 0.54 Estimated GFR > 60 > 60 BUN/Creatinine Ratio 12.3 14.8 Glucose 97 92 Calcium 8.4 8.7 Magnesium 2.1 [facility] Medical History Diabetes Perforated ulcer of intestine Social History household members: family and children other: She lives with her daughter, recently moved back from a [facility]. Smoking Status: Never smoker alcohol intake: never Assessment & Plan Assessment and plan (1) Perforated ulcer of intestine: Status: Acute Plan Home tomorrow with her daughter Hep-Lock IV DC antibiotics Time-Based Coding :: [TOTAL MINUTES] spent with patient and on the chart (including review of chart, obtaining history, exam, reviewing outside data, placing orders, documenting exam and treatment plan, and counseling patient) on [DATE]. PROFEE Tank House Operator Document charge(s): No
--- NOTE | 2025-04-09 13:51 | CM.DPC ---
DCP Cont: Per MD, pt making progress and still has one drain in place with plan to likely d/c soon depending on output and MD anticipates possible discharge home tomorrow Sun. Per PT, recommending home with family assist and HH. [facility] referral was made yesterday and F2F completed, will just need to send dc summary at discharge. RAMIRO Nesbitt
--- NOTE | 2025-04-09 15:23 | PT-IP ANOTE ---
PT checks on pt twice for PT and gait training. Pt is unavailable. Pt has been up walking with CGA and RW for 75' in previous treatment notes with plan to d/c home with daughter.
[2025-04-09 19:30] VITALS: BP 146/90; PULSE 89; RESP 18; TEMP 36.1; O2SAT 98
[2025-04-10 07:10] LABS: Hematocrit 29.5 % (36-46); Hemoglobin 10.0 g/dL (12.0-16.0); Mean Corpuscular HGB Conc 33.8 % (30-36); Mean Corpuscular Hemoglobin 28.0 PG (26-34); Mean Corpuscular Volume 82.7 fL (80-100); Platelet Count 603 X10^3/uL (150-400)
--- NOTE | 2025-04-10 07:56 | P.PN_ITS ---
Subjective Subjective Interval history: S: Exam Vital Signs (past 8 hours): Oxygen Delivery Method Room Air Oxygen Flow Rate 0 Narrative Exam Narrative: NAD, alert and oriented. Fluent speech. Lungs are clear, normal rate and effort. Heart is regular, no murmur gallop or rub. Abdomen is soft, non distended. Extremities are free of edema. Objective Labs 04/10/25 06:45 04/09/25 10:50 Labs: Laboratory Results - last 24 hr 04/09/25 04/09/25 04/10/25 10:50 20:03 06:45 WBC 13.1 H RBC 3.57 L Hgb 10.0 L Hct 29.5 L MCV 82.7 MCH 28.0 MCHC 33.8 RDW 15.1 H Plt Count 603 H Sodium 127 L Potassium 4.8 D Chloride 98 Carbon Dioxide 23 BUN 8 Creatinine 0.54 Estimated GFR > 60 BUN/Creatinine Ratio 14.8 Glucose 92 POC Whole Bld Glucose 90 Calcium 8.7 PFSH Medical History Diabetes Perforated ulcer of intestine Social History household members: family and children other: She lives with her daughter, recently moved back from a [facility]. Smoking Status: Never smoker alcohol intake: never Assessment & Plan Assessment & Plan narrative: 1. Gastric perforation with pneumoperitoneum from breaking down of an anterior suture line from previous gastrojejunostomy. Present on admission and improved after laparotomy and repair. 2. Peptic ulcer disease, active. 3. Hypertension, stable. 4. Nausea, improved. PLAN: -PPI BID, continue. -OOB, physical therapy. -Abdominal drain out per General surgery. Time-Based Coding :: [TOTAL MINUTES] spent with patient and on the chart (including review of chart, obtaining history, exam, reviewing outside data, placing orders, documenting exam and treatment plan, and counseling patient) on [DATE].
[2025-04-10 08:00] VITALS: BP 141/77; PULSE 90; RESP 17; TEMP 36.1; O2SAT 96
[2025-04-10] MEDS: HYDROCODONE/ACET 5/325 TABLET 1 TAB PO (08:05)
[2025-04-10] MEDS: SUCRALFATE 1 GM/10 ML ORAL SUSP PO (08:05)
[2025-04-10] MEDS: PANTOPRAZOLE 40 MG VIAL IV (08:05)
[2025-04-10 08:18] VITALS: BP 141/77
[2025-04-10] MEDS: AMLODIPINE 5 MG TABLET PO (08:18)
[2025-04-10] MEDS: POTASSIUM CHLORIDE 20 MEQ TAB 10 MEQ PO (08:18)
[2025-04-10] MEDS: METOPROLOL ER 25 MG TABLET PO (08:18)
[2025-04-10] MEDS: ENOXAPARIN 40 MG/0.4 ML SYRINGE SUBCUT (08:19)
--- NOTE | 2025-04-10 10:23 | PM.PN.IH.1 ---
Subjective Subjective Date Patient Seen: 04/10/25 Time Patient Seen: 10:23 Interval history: Doing well Having bowel function and tolerating a diet Exam Vital Signs (past 8 hours): - 04/10/25 08:00 04/10/25 08:18 Temperature 97.0 F L Pulse Rate 90 Respiratory Rate 17 Blood Pressure 141/77 H 141/77 H Pulse Oximetry 96 Oxygen Flow Rate 0 Oxygen Delivery Method Room Air Oxygen Flow Rate 0 Narrative Exam Narrative: Abdomen is soft, nontender Incision clean dry and intact Objective Labs 04/10/25 06:45 04/09/25 10:50 Labs: Laboratory Results - last 24 hr 04/09/25 04/09/25 04/10/25 10:50 20:03 06:45 WBC 13.1 H RBC 3.57 L Hgb 10.0 L Hct 29.5 L MCV 82.7 MCH 28.0 MCHC 33.8 RDW 15.1 H Plt Count 603 H Sodium 127 L Potassium 4.8 D Chloride 98 Carbon Dioxide 23 BUN 8 Creatinine 0.54 Estimated GFR > 60 BUN/Creatinine Ratio 14.8 Glucose 92 POC Whole Bld Glucose 90 Calcium 8.7 PFSH Medical History Diabetes Perforated ulcer of intestine Social History household members: family and children other: She lives with her daughter, recently moved back from a [facility]. Smoking Status: Never smoker alcohol intake: never Assessment & Plan Assessment and plan (1) Perforated ulcer of intestine: Status: Acute Plan Hopefully home today with daughter Time-Based Coding :: [TOTAL MINUTES] spent with patient and on the chart (including review of chart, obtaining history, exam, reviewing outside data, placing orders, documenting exam and treatment plan, and counseling patient) on [DATE]. PROFEE Family And Consumer Education Teacher Document charge(s): No
--- NOTE | 2025-04-10 10:55 | CM.DPNOTE ---
DCP Continued: Reviewed EMR and team rounds for pt?s medical status. Per hospitalist and surgeon, pt should be medically cleared for discharge today. DCP entered room, present in the room is pt's daughterMague. Pt states she is eager to dc home with daughter, daughter and pt in agreement with [facility] dc plan. Pt daughter states they have already scheduled start of care appt. DCP will send discharge summary to [facility] for continuity of care when available. DCP notified Gen Surg Provider of discharge plans, pending dc orders. Plan: Anticipating dc home today with daughter, [facility] to follow with care. CM Team will continue to follow for coordination of discharge plans. JEFFERY Teixeira
--- NOTE | 2025-04-10 11:00 | PT.IPTN ---
Current Diagnoses Chronic or unspecified peptic ulcer, site unspecified, with hemorrhage (04/03/25) Perforation of intestine (nontraumatic) (04/03/25) Surgery Performed Operation Date: 04/03/25 12:15 Actual Procedures p REPAIR OF PERFORATED ANASTOMOTIC ULCER; RESECTION OF JEJUNUM, HANDSEW ANASTAMOSIS(Not Applicable) - Jamie Su DO Physical Therapy Treatment Note M2 PT-IP Current Condition Start: 04/05/25 10:21 Freq: NEEDED Status: Active Protocol: Document 04/06/25 11:29 MB (Rec: 04/06/25 11:59 MB Desktop) Physical Therapy Current Condition Current Condition Evaluation Date 04/06/25 Treatment Diagnosis Perforated anastomotic ulcer s/p surgery M3 PT-IP Subjective Start: 04/05/25 10:21 Freq: NEEDED Status: Active Protocol: Document 04/10/25 10:49 SALES ASSISTANT DISPLAYS (Rec: 04/10/25 10:59 SALES ASSISTANT DISPLAYS [id number]) Subjective Physical Therapy Visit Type Type Treatment Note Visit Start Time 09:27 Visit Stop Time 09:50 Number of CLIENT FINANCE ANALYST Visits 0 Physical Therapy Visit Comments Patient Comments Pt standing in room with SENIOR ASSET MANAGER, pleasant and agreeable to PT tx. Therapy Pain Assessment Pain When Pain Assessed During Mobility Pain Present Pain Present Allowed to Sleep Location Upper abdome Intensity 3 Scale Used Numeric (0 - 10) M4 PT-IP Mobility and Gait Start: 04/05/25 10:21 Freq: NEEDED Status: Active Protocol: Document 04/10/25 10:49 SALES ASSISTANT DISPLAYS (Rec: 04/10/25 10:59 SALES ASSISTANT DISPLAYS [id number]) PT-Transfer Assessment Sit to and From Stand Sit to and from Standby Assistance,Use of Upper Extremities Stand Equipment Transfer Assistive Front Wheeled Walker Device Orthotic/Prosthetic No Devices or Brace: Transfers Transfer Destination Chair Transfer Technique amb to chair with RW Transfer Ability Level of Assist Standby Assistance Comments Mobility Comments Pt amb in hallway ~200' with RW with SBA and performed transfer to recliner at end of session with RW with SBA , slow but steady without LOB. Daughter in room at end of session. Gait Assessment Gait Gait Assistance Standby Assistance Required: Distance (Feet) 200 Able to Maintain Yes Weight Bearing Status During Gait Assistive Devices Assistive Device Gait Belt,Front Wheeled Walker Orthotic/Prosthetic No Devices or Brace: Gait Deviations General Gait Pattern Decreased Stride Length,Flexed Trunk Factors Limiting Gait Function Factors Limiting Decreased Activity Tolerance,Decreased Strength,Pain Gait Function Comments Gait Comments decrease gait speed, frequent VC for upright posture PT-Balance Assessment Sitting Balance and Reactions Static Sitting Normal Balance Ability Dynamic Sitting Normal Balance Ability Standing Balance and Reactions Static Standing Good Balance Ability Dynamic Standing Good Balance Ability M5 PT-IP Objective Assessments Start: 04/05/25 10:21 Freq: NEEDED Status: Active Protocol: Document 04/06/25 11:29 MB (Rec: 04/06/25 11:59 MB Desktop) Orientation Orientation/Cognition Level of Alertness Alert Orientation Name,Birthday,Situation Language Function No Deficits Noted Ability Safety Awareness Decreased Safety Awareness Memory Description No Deficits Noted Gross Range of Motion Upper Extremity ROM Assessment Within Functional Limits Impairments Did not push today given abdominal discomfort and arm appears WFLs Lower Extremity ROM Assessment Within Functional Limits Strength Lower Extremity Strength Assessment Within Functional Limits Coordination Assessment Assessment Coordination NT Comments Sensation Assessment Sensation Gross Sensation WNL Muscle Tone Muscle Tone WNL Yes M6 PT-IP Treatment Start: 04/05/25 10:21 Freq: NEEDED Status: Active Protocol: Document 04/10/25 10:49 SALES ASSISTANT DISPLAYS (Rec: 04/10/25 10:59 SALES ASSISTANT DISPLAYS [id number]) Physical Therapy Treatment Education Education Provided Precautions,Safety M7 PT-IP Assessment and Plan Start: 04/05/25 10:21 Freq: NEEDED Status: Active Protocol: Document 04/10/25 10:49 SALES ASSISTANT DISPLAYS (Rec: 04/10/25 10:59 SALES ASSISTANT DISPLAYS [id number]) PT Summary Assessment and Plan Potential Rehabilitation Good Potential Summary Impairments Pain,ROM,Strength,Balance,Coordination,Sensation,Tone, Cognition,Bed Mobility,Transfers,Gait,Activity Tolerance Progress Towards Progressing Toward Goals Goals Assessment Summary Pt performed gait and transfer to chair with SBA with RW, demonstrated improved pain and endurance this session to be able to amb ~200' with slight improved gait speed but still decreased, however not limiting a safe D/C home with daughter and HH PT. Goals Bed Mobility Goal Independent Transfer Goal Independent,Four Wheeled Walker Gait Goal Independent,Four Wheel Walker Gait Distance 100 Days to Meet Goals 10 Frequency of Treatment Frequency Of Once a Day Treatment Treatment Plan Physical Therapy Bed Mobility Training,Transfer Training,Gait Training, Treatment Plan Therapeutic Exercise,Balance Retraining,Post Op Education,Discharge Planning,Hot or Cold Pack, Neuromuscular Re-ed,Coordination Retraining,Manual Therapy Precautions Abdominal Surgery Log Roll,Lifting Restrictions,Gait Belt above Precautions Incisional Area Recommendations To Nursing Amount of Assist 1 Person Assist Needed Discharge Recommendations PT Discharge Home with 19/03 Assist Available,Home Health Recommendations Transportation Needs Private Vehicle,Wheelchair/Cabulance at Discharge - PT assist 1
--- NOTE | 2025-04-10 11:41 | P.DS_ITS ---
History of Present Illness History of Present Illness Chief complaint: Coffee ground Vomit and stool . 5 days Narrative: From H&P: Patient presents to the emergency room with nausea vomiting hematemesis going on 5 days with black melanotic stools for several weeks. Patient states her pain is only 2 on a scale of 0-10 she has had a history of multiple peptic ulcers history of recent EGD in October of 2024 which showed peptic ulcer disease also had a perforated pre-pyloric ulcer in 1999 21 underwent a partial gastrectomy with gastrojejunostomy. Patient underwent a workup in the emergency room showed WBC of 13.3 hemoglobin is 11.2 hematocrit is 33.2 platelets are 420,000 sodium is 132 potassium 3.6 chloride 93 bicarb is 17 BUN of 20 creatinine 0.8 random blood sugar is 103 total bilirubin is 1.3 AST is 25 ALT is 13 alkaline phosphatase 68 lipase is [address] scan showing free air in the epigastric area with the gastrojejunostomy with an area of inflammation and small air bubble near this absent antrum gallstone noted within the gallbladder but noninflamed absent uterus. Patient states that denies any other problems denies any anticoagulation. I was asked see the patient for surgical evaluation. Discharge Providers Provider Date of admission: 04/03/25 11:21 Discharge Date: 04/10/25 Consults: 04/04/25 11:28 Consult to Hospitalist Service Routine Comment: Consulting Provider: Wesley Sykes Reason for consultation: Medically complex Has provider been notified: Yes 04/05/25 09:42 Consult to Physical Therapy Evaluate & Treat Comment: Postop physical therapy Physician Instructions: Evaluate and Treat 04/08/25 16:57 Consult to Home Health Routine Comment: RN, PT Reason For Exam: Peptic ulcer disease, s/p ex lap for perf, HTN Discharge provider: Wesley Sykes MD Summary Hospital Course Discharge Diagnosis: 1. Gastric perforation with pneumoperitoneum from breaking down of an anterior suture line from previous gastrojejunostomy. Present on admission and improved after laparotomy and repair. 2. Peptic ulcer disease, active. 3. Hypertension, stable. 4. Nausea, improved. Hospital Course: 04/03: 74-year-old who presented with nausea, vomiting, and he would this for 5 days. She also had melena for several weeks. In the emergency department she was found to have WBC of 13.3. A CT of the abdomen revealed free air consistent with perforation. She does have a history of peptic ulcer disease and a history of perforation in the past. She was seen by General surgery and taken to the operating room where she underwent laparotomy with repair of the anterior gastric staple line from her previous gastrojejunostomy. She did well and was extubated and brought to the ICU postoperatively. Past history includes peptic ulcer disease, previous perforation, hypertension, and dyslipidemia. 04/04: Postoperatively, she was seen in the ICU. Though she was relatively comfortable. She denies any dyspnea, or chest pain. She was some left upper quadrant tenderness. A nasogastric tube is in place. 04/04-04/05: Continued to improve nasogastric tube removed 04/06: No complaints at this time no nausea or vomiting she is alert and cogent bowel sounds are present she is passing gas tolerating diet 04/07: No further complaints at this time tolerating diet hemoglobin dropped to 7.5 and potassium dropped to 2.7 which are being replaced by surgery team 04/08-: Progressive improvement with advance in his diet. Drains were removed on April 09. She was stable for discharge on the . Status at Discharge Cognitive/behavioral status at discharge: oriented Functional status at discharge: independent ambulation Overall status at discharge: patient is back to baseline Time Spent with Patient Time spent: Greater than 30 minutes Exam Vital Signs (past 8 hours): - 04/10/25 08:00 04/10/25 08:18 Temperature 97.0 F L Pulse Rate 90 Respiratory Rate 17 Blood Pressure 141/77 H 141/77 H Pulse Oximetry 96 Oxygen Flow Rate 0 Oxygen Delivery Method Room Air Oxygen Flow Rate 0 Narrative Exam Narrative: NAD, alert and oriented. Fluent speech. Lungs are clear, normal rate and effort. Heart is regular, no murmur gallop or rub. Abdomen is soft, non distended. Extremities are free of edema. Abdominal wound looks good, chacha are in place and drains have been removed. No erythema. Objective Imaging Multiple studies:: Radiologist's impression: Abdomen pelvis CT: 1. Persistent severe inflammatory changes at the proximal jejunum distal to the gastrojejunal anastomosis without contrast challenge of the area of concern. If contrast is not suctioned from the patient's stomach subsequent radiographs may reveal intraluminal versus extra luminal contrast passage. 2. No organized extraluminal fluid collection. 3. Moderate edema within the mesentery with reactive lymphadenopathy. 4. Small foci of free air within the peritoneum. 5. Multiple surgical drains. reactive lymphadenopathy Abdomen pelvis CTA: Gastrojejunostomy, with perforated ulcer of the proximal jejunum, just distal to the anastomosis. Small volume free air. Small volume free fluid. No drainable abscess. Labs 04/10/25 06:45 04/09/25 10:50 Labs: Laboratory Results - last 24 hr 04/09/25 04/10/25 20:03 06:45 WBC 13.1 H RBC 3.57 L Hgb 10.0 L Hct 29.5 L MCV 82.7 MCH 28.0 MCHC 33.8 RDW 15.1 H Plt Count 603 H POC Whole Bld Glucose 90 PFSH Medical History Diabetes Perforated ulcer of intestine Social History household members: family and children other: She lives with her daughter, recently moved back from a [facility]. Smoking Status: Never smoker alcohol intake: never Discharge Assessment & Plan Assessment and Plan Assessment: 1. Gastric perforation with pneumoperitoneum from breaking down of an anterior suture line from previous gastrojejunostomy. Present on admission and improved after laparotomy and repair. Plan of Treatment: Discharge home with her daughter. We will continue PPI b.i.d. but close follow up with surgery. Discharge Plan Discharge Plan Patient Disposition: Home Provider Discharge Comment: Stable for discharge. Discharge orders & Medications Prescriptions: New hydrocodone-acetaminophen 5-325 mg Tablet 1 tab PO Q6HR PRN (Reason: Pain, Moderate (4-6)) Qty: 15 0RF lidocaine 5 % kit 1 applic topical BEDTIME Qty: 1 0RF pantoprazole [Protonix] 40 mg tablet,delayed release (DR/EC) 40 mg PO BID Qty: 60 2RF Continued amlodipine 5 mg tablet 5 mg PO DAILY metformin 1,000 mg tablet 1,000 mg PO BID metoprolol succinate 25 mg tablet extended release 24 hr 25 mg PO DAILY rosuvastatin 20 mg tablet 20 mg PO QAM Discharge Health Status Multidrug resistant organism: No MDRO Diet/Activity/Treatments Diet: Carb-consistent/Diabetic Activity: As tolerated. Visit Report/Discharge Packet Instructions: [facility]: Wound Care Stand Alone Forms: Patient Portal/API
== END 2025-04-10 12:30 | disposition home health service (06) | DRG 907 ==
LOC: ED 11:18 → AC 11:21 → ICU 11:43 → AC 04-07 01:48
PROVIDERS: Hospitalist; Internal Medicine; Admitting Provider Surgery; Emergency Provider Family Medicine; Referring Provider Family Medicine; Visit Provider Surgery
PROC: 0DQA0ZZ Repair Jejunum, Open Approach (ICD-10-PCS; CPT 49000; principal; 2025-04-03 12:15)
DX: T81.320A Disruption or dehiscence of gastrointestinal tract anastomosis, repair, or closure, initial encounter (principal); K25.6 Chronic or unspecified gastric ulcer with both hemorrhage and perforation; K65.9 Peritonitis, unspecified; D62 Acute posthemorrhagic anemia; I10 Essential (primary) hypertension; E87.6 Hypokalemia; E78.5 Hyperlipidemia, unspecified; E11.9 Type 2 diabetes mellitus without complications; Z79.84 Long term (current) use of oral hypoglycemic drugs; Z93.4 Other artificial openings of gastrointestinal tract status
CPT/HCPCS: 36415; 36430; 43860; 74174; 74177; 80048; 80053; 82962; 83690; 83735; 85025; 85027; 86850; 86900; 86901; 87070; 87075; 87205; 87797; 93005; 96360; 96361; 97116; 97161; 97530; 99222; 99284; P9016; J0131; J0330; J1100; J1171; J1650; J2250; J2405; J2470; J2543; J2704; J2765; J3010; J3475; Q9967